=== PATIENT | female | born 1955 | race American Indian/Alaskan Native ===

== ENCOUNTER 2017-07-09 07:28 | Inpatient (IN) | payer BC ==
[2017-07-09 07:35] VITALS: BMI 38.8
--- NOTE | 2017-07-09 07:56 | ED PDOC ---
Lower Extremity Pain/Injury Time Seen by Provider: 07/09/17 07:31 Chief Complaint (Nursing): Lower Extremity Problem/Injury Chief Complaint (Provider): Left knee pain History Per: Patient History/Exam Limitations: no limitations Onset/Duration Of Symptoms: Days (x 1 month) Current Symptoms Are (Timing): Still Present Additional Complaint(s): Anya is a 62 year old female with a past medical history of hypertension, diabetes, and hypercholesterolemia, who presents to the ED complaining of left knee pain, onset 1 month ago. Pain has been worsening, so she came to the ED for further evaluation. PMD: Dr. Abdalla Past Medical History Reviewed: Historical Data, Nursing Documentation, Vital Signs Vital Signs: Last Vital Signs Temp 97.2 F L 07/09/17 07:36 Pulse 89 07/09/17 07:36 Resp 16 07/09/17 07:36 BP 120/64 07/09/17 07:36 Pulse Ox 96 07/09/17 07:36 - Medical History PMH: Diabetes, HTN, Hyperlipidemia - Surgical History Other surgeries: Right knee replacement - Family History Family History: States: Unknown Family Hx - Living Arrangements Living Arrangements: With Family - Social History Current smoker - smoking cessation education provided: No Alcohol: None Drugs: Denies - Home Medications Home Medications: Ambulatory Orders Medication Instructions Recorded Aspirin [Aspirin Chewable] 81 mg PO DAILY 07/09/17 Cholecalciferol [Vitamin D 1000 IU] 50,000 iu PO DAILY 07/09/17 Losartan/Hydrochlorothiazide 1 tab PO DAILY 07/09/17 [Losartan-Hctz 100-25 mg Tab] Rosuvastatin Calcium [Crestor] 20 mg PO HS 07/09/17 Zolpidem [Ambien] 10 mg PO HS PRN 07/09/17 amLODIPine [Norvasc] 10 mg PO DAILY 07/09/17 metFORMIN [glucOPHAGE] 500 mg PO DAILY 07/09/17 traMADol [Ultram] 50 mg PO Q12 PRN 07/09/17 - Allergies Allergies/Adverse Reactions: Allergies Allergy/AdvReac Type Severity Reaction Status Date / Time No Known Allergies Allergy Verified 07/09/17 07:44 Review of Systems ROS Statement: Except As Marked, All Systems Reviewed And Found Negative Constitutional: Negative for: Fever, Chills, Weakness Cardiovascular: Negative for: Chest Pain Respiratory: Negative for: Cough, Shortness of Breath Gastrointestinal: Negative for: Nausea, Vomiting, Diarrhea Musculoskeletal: Positive for: Leg Pain (Knee pain, Left) Neurological: Negative for: Weakness, Numbness, Headache, Dizziness Physical Exam - Reviewed Nursing Documentation Reviewed: Yes Vital Signs Reviewed: Yes - Physical Exam Appears: Positive for: Non-toxic, No Acute Distress Head Exam: Positive for: ATRAUMATIC, NORMAL INSPECTION, NORMOCEPHALIC Skin: Positive for: Normal Color, Warm, Dry Eye Exam: Positive for: EOMI, Normal appearance, PERRL Neck: Positive for: Normal, Painless ROM, Supple Cardiovascular/Chest: Positive for: Regular Rate, Rhythm. Negative for: Murmur Respiratory: Positive for: Normal Breath Sounds. Negative for: Respiratory Distress Gastrointestinal/Abdominal: Positive for: Normal Exam, Bowel Sounds, Soft. Negative for: Tenderness Back: Positive for: Normal Inspection. Negative for: L CVA Tenderness, R CVA Tenderness, Vertebral Tenderness Extremity: Positive for: Normal ROM (Limited ROM but pain on ROM of left knee), Tenderness (to the left knee diffusely). Negative for: Pedal Edema, Other ( Erythema, ecchymosis) Neurologic/Psych: Positive for: Alert, Oriented - Laboratory Results Result Diagrams: 07/09/17 08:53 07/09/17 08:53 Interpretation Of Abn Labs: no acute - ECG O2 Sat by Pulse Oximetry: 96 (RA) Pulse Ox Interpretation: Normal - Progress ED Course And Treament: 900: Spoke with Dr. Lopez. Will admit for further evaluation and management. Spoke with Dr. Gastelum. Will consult. Pain worse and locking. Medical Decision Making Medical Decision Making: Time: 7:55 Initial Impression:Left knee pain Initial Plan: --Paged Dr. Gastelum for consult Time: 8:00 Dr. Gastelum returned call. Patient will be admitted to hospitalist, Dr. Lopez, for worsening knee pain. Time: 8:10 --CMP --Troponin I --CBC --PTT --Prothrombin time --Urine dip --EKG --Chest x-ray --NS IV 500 ml at 100 mls/hr Scribe Attestation: Documented by Devi Robles, acting as a scribe for Rigo Wellington MD Provider Scribe Attestation: All medical record entries made by the Scribe were at my direction and personally dictated by me. I have reviewed the chart and agree that the record accurately reflects my personal performance of the history, physical exam, medical decision making, and the department course for this patient. I have also personally directed, reviewed, and agree with the discharge instructions and disposition. Disposition - Clinical Impression Clinical Impression: Knee pain - Patient ED Disposition Is Patient to be Admitted: Yes Counseled Patient/Family Regarding: Studies Performed, Diagnosis - Disposition Disposition Time: 09:30 Condition: FAIR - Pt Status Changed To: Hospital Disposition Of: Observation - POA Present On Arrival: None
[2017-07-09] MEDS ORDERED: Sodium Chloride 0.9% 500 ML IV STA (08:11)
--- NOTE | 2017-07-09 08:47 | CP.PCM.HP ---
Addendum entered and electronically signed by Alanis Reilly DPM 07/09/17 09:40: Patient last took ASA yesterday morning. Original Note: <Alanis Reilly - Last Filed: 07/09/17 09:29> History of Present Illness - History of Present Illness History of Present Illness: 62 year old female patient PMHx HTN, DM, hypercholesterolemia seen in ED complaining of left knee pain of 1 month duration. Patient has a history of bilateral knee osteoarthritis and underwent a right knee replacement last year 2 /2 severe right knee pain. Patient states because of the severe pain, she was compensating on her left knee, resulting in this current severe left knee pain. Patient admits to taking Tramadol daily for relief however the pain has been getting worse, making ambulation difficult which led her to present to [facility] ED. Patient denies N/V/F/D/C/SOB/palpitations. PMH: HTN, DM, hypercholesterolemia, sleep apnea (uses CPAP) PSH: Right knee replacement (1 year ago) FH: unknown SH: current tobacco use, denies ETOH, denies illicit drug use Meds: see med list All: NKDA Present on Admission - Present on Admission Any Indicators Present on Admission: No Review of Systems - Review of Systems All systems: reviewed and no additional remarkable complaints except (as per HPI ) Past Patient History - Past Medical History & Family History Past Medical History?: Yes - Past Social History Alcohol: None Drugs: Denies - CARDIAC Hx Hypertension: Yes - PULMONARY Hx Respiratory Disorders: Yes Hx Sleep Apnea: Yes - NEUROLOGICAL Hx Neurological Disorder: No - HEENT Hx HEENT Problems: No - RENAL Hx Chronic Kidney Disease: No - ENDOCRINE/METABOLIC Hx Endocrine Disorders: Yes Hx Diabetes Mellitus Type 2: Yes - HEMATOLOGICAL/ONCOLOGICAL Hx Blood Disorders: No - INTEGUMENTARY Hx Dermatological Problems: No - MUSCULOSKELETAL/RHEUMATOLOGICAL Hx Musculoskeletal Disorders: Yes Hx Arthritis: Yes - GASTROINTESTINAL Hx Gastrointestinal Disorders: Yes Other/Comment: heart burn - GENITOURINARY/GYNECOLOGICAL Hx Genitourinary Disorders: No - PSYCHIATRIC Hx Psychophysiologic Disorder: No Hx Substance Use: No - SURGICAL HISTORY Hx Surgeries: Yes Other/Comment: right knee replacement Meds Allergies/Adverse Reactions: Allergies Allergy/AdvReac Type Severity Reaction Status Date / Time No Known Allergies Allergy Verified 07/09/17 07:44 Physical Exam - Constitutional Appears: Well, Non-toxic, No Acute Distress - Head Exam Head Exam: ATRAUMATIC, NORMAL INSPECTION, NORMOCEPHALIC - Eye Exam Eye Exam: EOMI, Normal appearance, PERRL. absent: Periorbital swelling Pupil Exam: NORMAL ACCOMODATION - ENT Exam ENT Exam: Mucous Membranes Moist, Normal Exam, Normal External Ear Exam - Neck Exam Neck exam: Positive for: Full Rom, Normal Inspection. Negative for: Tenderness - Respiratory Exam Respiratory Exam: Clear to Auscultation Bilateral, NORMAL BREATHING PATTERN. absent: Rales, Rhonchi, Wheezes, Respiratory Distress - Cardiovascular Exam Cardiovascular Exam: REGULAR RHYTHM, +S1, +S2. absent: Diastolic murmur, Gallop , JVD, Rubs, Systolic Murmur - GI/Abdominal Exam GI & Abdominal Exam: Normal Bowel Sounds, Soft. absent: Firm, Mass, Tenderness - Rectal Exam Rectal Exam: Deferred - Extremities Exam Extremities exam: Positive for: normal capillary refill, normal inspection, pedal pulses present. Negative for: calf tenderness Additional comments: Decreased ROM left knee with pain noted - Back Exam Back exam: FULL ROM, NORMAL INSPECTION. absent: CVA tenderness (L), CVA tenderness (R), tenderness - Neurological Exam Neurological exam: Alert, CN II-XII Intact, Oriented x3 - Psychiatric Exam Psychiatric exam: Normal Affect, Normal Mood - Skin Skin Exam: Dry, Intact, Normal Color, Warm Results - Vital Signs Recent Vital Signs: Last Vital Signs Temp 97.2 F L 07/09/17 07:36 Pulse 89 07/09/17 07:36 Resp 16 07/09/17 07:36 BP 120/64 07/09/17 07:36 Pulse Ox 96 07/09/17 08:01 - Labs Result Diagrams: 07/09/17 08:53 07/09/17 08:53 Assessment & Plan (1) Primary osteoarthritis of left knee Status: Resolved (2) Hypertension Status: Chronic (3) Hypercholesterolemia Status: Chronic (4) Type 2 diabetes mellitus Status: Chronic (5) Sleep apnea Status: Chronic - Assessment and Plan (Free Text) Assessment: 62 year old female patient PMHx HTN, Hypercholesterolemia, DM2, sleep apnea with severe left knee pain 2/2 osteoarthritis. Failed outpatient conservative management. METs >4. Denies chest pain and dyspnea at rest or on exertion. Labs/ CXR/EKG reviewed. Patient is medically stable for surgery. Low risk for moderate risk procedure. (1) Primary osteoarthritis of left knee Status: Chronic Ortho consult - Dr. Gastelum CXR/EKG/CBC/CMP/PT/PTT/INR Pain management PT/OT consult (2) Hypertension Status: Chronic Restart home antihypertensives: Amlodipine, Losartan/HCTZ Hold ASA (3) Hypercholesterolemia Status: Chronic Restart home med Crestor (4) Type 2 diabetes mellitus Status: Chronic Continue home med: Metformin Accuchecks ACHS Consistent carbohydrate diet (5) Sleep apnea Status: Chronic Continue home med: Ambien At home CPAP (6) DVT prophylaxis SCDs for now <Melly Lopez - Last Filed: 07/09/17 15:21> Results - Vital Signs Recent Vital Signs: Last Vital Signs Temp 97.9 F 07/09/17 08:57 Pulse 89 07/09/17 08:57 Resp 16 07/09/17 08:57 BP 120/64 07/09/17 08:57 Pulse Ox 96 07/09/17 09:31 - Labs Result Diagrams: 07/09/17 08:53 07/09/17 08:53 Labs: Laboratory Results - last 24 hr 07/09/17 07/09/17 07/09/17 08:53 08:53 08:53 WBC 5.6 RBC 4.77 Hgb 12.8 Hct 38.8 MCV 81.2 MCH 26.8 L MCHC 33.0 RDW 15.2 H Plt Count 151 MPV 9.2 Neut % (Auto) 57.1 Lymph % (Auto) 31.7 [place] % (Auto) 8.3 Eos % (Auto) 2.3 Baso % (Auto) 0.6 Neut # 3.2 Lymph # 1.8 [place] # 0.5 Eos # 0.1 Baso # 0.0 PT 10.6 INR 0.9 APTT 32.0 Sodium 143 Potassium 3.5 L Chloride 106 Carbon Dioxide 30 Anion Gap 11 BUN 19 H Creatinine 0.9 Est GFR ( Amer) > 60 Est GFR (Non-Af Amer) > 60 Random Glucose 99 Calcium 9.9 Total Bilirubin 0.4 AST 33 ALT 48 Alkaline Phosphatase 80 Troponin I < 0.0120 Total Protein 7.4 Albumin 4.0 Globulin 3.4 Albumin/Globulin Ratio 1.2 Blood Type Blood Type Confirm Antibody Screen BBK History Checked 07/09/17 07/09/17 12:25 14:19 WBC RBC Hgb Hct MCV MCH MCHC RDW Plt Count MPV Neut % (Auto) Lymph % (Auto) [place] % (Auto) Eos % (Auto) Baso % (Auto) Neut # Lymph # [place] # Eos # Baso # PT INR APTT Sodium Potassium Chloride Carbon Dioxide Anion Gap BUN Creatinine Est GFR ( Amer) Est GFR (Non-Af Amer) Random Glucose Calcium Total Bilirubin AST ALT Alkaline Phosphatase Troponin I Total Protein Albumin Globulin Albumin/Globulin Ratio Blood Type A POSITIVE Blood Type Confirm A POSITIVE Antibody Screen Negative BBK History Checked No verified bt Attending/Attestation - Attestation I have personally seen and examined this patient.: Yes I have fully participated in the care of the patient.: Yes I have reviewed all pertinent clinical information: Yes Notes (Text): 07/09/17 15:21 Seen, examined, and discussed with Resident Dr. Reilly. Agree with findings and plan as above.
[2017-07-09] MEDS ORDERED: ceFAZolin IV 1 gm in Dextrose 2 GM/100 ML BAG IVPB ONE (09:02)
[2017-07-09] MEDS ORDERED: Lidocaine 1% Inj (20ml) ONE (09:02)
[2017-07-09] MEDS ORDERED: Bupivacaine 0.5% Inj(30mL) ONE (09:02)
[2017-07-09 09:03] LABS: BASO % 0.6 % (0.0-2.0); EOS # 0.1 K/uL (0.0-0.7); EOS % 2.3 % (0.0-4.0); HEMATOCRIT 38.8 % (34.0-47.0); LYMPH # 1.8 K/uL (1.0-4.3); LYMPH % 31.7 % (20.0-40.0); MEAN CELL VOLUME 81.2 fl (81.0-99.0); MEAN CORPUSCULAR HEMOGLOBIN 26.8 pg (27.0-31.0); MEAN PLATELET VOLUME 9.2 fl (7.2-11.7); MONO # 0.5 K/uL (0.0-0.8); MONO % 8.3 % (0.0-10.0); NEUT # 3.2 K/uL (1.8-7.0); NEUT % 57.1 % (50.0-75.0); NRBC % 0.2 % (0.0-0.0); RED CELL DISTRIBUTION WIDTH 15.2 % (11.5-14.5); WHITE BLOOD COUNT 5.6 K/uL (4.8-10.8)
[2017-07-09] MEDS ORDERED: Thrombin Topical 5,000 IU Spray Kit ONE (09:03)
[2017-07-09] MEDS ORDERED: Absorbable Gelatin Sponge Size 100 ONE (09:03)
[2017-07-09 09:08] LABS: ALB/GLOB RATIO 1.2 (1.0-2.1); ALKALINE PHOSPHATASE 80 U/L (38-126); ALT/SGPT 48 U/L (9-52); AST/SGOT 33 U/L (14-36); BILIRUBIN,TOTAL 0.4 mg/dl (0.2-1.3); BLOOD UREA NITROGEN 19 mg/dl (7-17); CALCIUM 9.9 mg/dL (8.4-10.2); CARBON DIOXIDE 30 mmol/L (22-30); CHLORIDE 106 mmol/L (98-107); GFR AFRICAN-AMERICAN > 60; GLUCOSE,RANDOM 99 mg/dL (65-105); POTASSIUM 3.5 MMOL/L (3.6-5.0); SODIUM 143 mmol/l (132-148); TOTAL PROTEIN 7.4 G/DL (6.3-8.2)
[2017-07-09] MEDS ORDERED: Potassium CL 10mEq/100ml 100 ML IVPB SCH (09:30)
--- NOTE | 2017-07-09 09:34 | RAD ---
HISTORY: knee pain COMPARISON: No prior. FINDINGS: LUNGS: No active pulmonary disease. PLEURA: No significant pleural effusion identified, no pneumothorax apparent. CARDIOVASCULAR: Normal. OSSEOUS STRUCTURES: No significant abnormalities. VISUALIZED UPPER ABDOMEN: Normal. OTHER FINDINGS: None. IMPRESSION: No acute cardiopulmonary disease appreciated.
[2017-07-09] MEDS ORDERED: Midazolam 2 MG/2 ML VIAL ONE (09:56)
[2017-07-09] MEDS ORDERED: Propofol 10 mg/ml Inj (20 ML) ONE (09:56)
[2017-07-09] MEDS ORDERED: Neostigmine Methylsulfate 3mg/3ml Syringe IV ONE (09:57)
[2017-07-09] MEDS ORDERED: Rocuronium 10 mg/ml (5 ml) ONE ×2 (09:57→13:10)
[2017-07-09] MEDS ORDERED: Lidocaine 4% (Laryng-O-Jet) Kit MM ONE (09:57)
[2017-07-09] MEDS ORDERED: Succinylcholine 200 mg/10 ml Inj IV ONE (09:57)
[2017-07-09] MEDS ORDERED: Lidocaine 1% 5ml Abboject IV ONE (11:06)
--- NOTE | 2017-07-09 11:14 | RAD ---
PROCEDURE: Left Knee Radiographs. HISTORY: Pain. COMPARISON: None. FINDINGS: BONES: No acute fracture or destructive bony lesion identified. JOINTS: Joint space narrowing, cortical sclerosis and prominent osteophyte development are identified at all 3 joint compartments compatible with advanced osteoarthritis. Medial femorotibial compartment appears to be the most affected. JOINT EFFUSION: Trace suprapatellar bursa effusion is in question. OTHER FINDINGS: None. IMPRESSION: Advanced tricompartmental osteoarthritis. No fracture subluxation or dislocation.
[2017-07-09] MEDS ORDERED: Sevoflurane - Inhalation Anesthetic Liq (250 ml) ONE (13:13)
[2017-07-09] MEDS ORDERED: Labetalol 5mg/ml (4ml) ONE (13:40)
[2017-07-09] MEDS ORDERED: Lactated Ringer's 1,000 ML IV ONE ×3 (13:41→16:30)
[2017-07-09] MEDS ORDERED: Sodium Chloride 0.9% 500 ML IV ONE ×3 (13:41→16:30)
[2017-07-09] MEDS ORDERED: Sodium Chloride 0.9% 3,000 ML IV ONE (14:02)
[2017-07-09] MEDS ORDERED: Sodium Chloride 0.9% 1,000 ML IV ONE (15:19)
[2017-07-09] MEDS ORDERED: HYDROmorphone 0.5 mg/0.5 ml ISec IVP PRN (16:50)
--- NOTE | 2017-07-09 16:59 | PCM.ANESB3 ---
Femoral Nerve Block - Femoral Nerve Block Date of Procedure: 07/09/17 Anesthesiologist: Dr. Quigley Pre-Procedure Diagnosis: S/P left total knee replacement Post-Procedure Diagnosis: S/P left total knee replacement Procedure Performed: Femoral Nerve Block Left - Procedure Femoral Nerve Block: The procedure was explained to the patient that it is for the post-operative pain management. Consent was obtained after a thorough discussion with the patient regarding the benefits and possible complications of local anesthetic block of the femoral nerve at the inguinal crease area. The patient was brought to the operating room and standard monitors were applied. Time-out was held with the circulating nurse to confirm the correct surgery and the appropriate block. After the surgery while still under general anesthesia, patient in supine position with fully extended lower extremities and the left groin exposed. The femoral artery was then carefully palpated. The ultrasound transducer was then applied to this area in the transverse plane and the femoral nerve was visualized lateral to the femoral artery and underneath the fascia iliaca. After thorough identification, the inguinal crease area was prepped with Chloraprep solution. At this point, a #21 gauge Stimuplex 4-inch needle was inserted immediately lateral to the femoral artery pulse at the inguinal crease and advanced perpendicularly. The needle was inserted to the ultrasound transducer in-plane towards the femoral nerve in a [id number] direction. Needle advancement was performed carefully under direct ultrasound visualization. Nerve stimulator was used and twitch of the quadriceps muscle was obtained at current of 0.3MA. After negative aspiration, 5cc of 0.375% Bupivacaine with 1:200,000 epinephrine was injected and this was followed with 15cc of 0.375% Bupivacaine with 1:200, 000 epinephrine. Under ultrasound guidance the local anesthetics were observed spreading below fascia iliaca and around the femoral nerve. The needle was removed intact and sterile dressing was applied. The patient had stable vital signs, was conscious and in no apparent distress. The patient tolerated the femoral nerve block well with stable vital signs and was awaken from anesthesia. Patient transported to PACU in stable condition.
--- NOTE | 2017-07-09 17:06 | PCM.ANESB2 ---
Popliteal Nerve Block - Popliteal Nerve Block Date of Procedure: 07/09/17 Anesthesiologist: Dr. Quigley Pre-Procedure Diagnosis: S/P left total knee replacement Post-Procedure Diagnosis: S/P left total knee replacement Procedure Performed: Popliteal Nerve Block Left - Procedure Popliteal Nerve Block: This procedure was explained to the patient that it is for post-operative pain management. Consent was obtained after a thorough discussion with the patient regarding the benefits and possible complications of local anesthetic block of the sciatic nerve at the mid to upper thigh level. The patient was brought to the operating room and standard monitors are applied. Time-out was held with the circulating nurse to confirm the correct surgery and the appropriate block. After the surgery while still under general anesthesia, patient's operative leg was gently raised and supported and the groove in between the biceps femoris and vastus lateralis muscles was carefully palpated. The skin approximately left mid upper thigh was then marked. The ultrasound transducer was then applied to the posterior thigh and the sciatic nerve before its division was visualized in between the bicep femoris and semimembranosus/semitendinosus muscles. After identification, the lateral portion of the thigh was prepped with Chloraprep solution. At this point, a # 21 gauge Stimuplex insulated 4 inch needle was inserted into pre-marked area and advanced in a perpendicular direction. The needle was inserted above the ultrasound transducer in-plane towards the sciatic nerve in a [id number] direction. Needle advancement was performed carefully under direct ultrasound visualization. Nerve stimulator was used and dorsiflexion of the left foot was elicited at a current of 0.3MA. After repeated negative aspiration, 5cc of 0.375% Bupivacaine with 1:200,000 epinephrine was injected and this was flowed with 5cc of 0.375% Bupivacaine with 1:200,000 epinephrine. Under ultrasound guidance the local anesthetics were observed surrounding sciatic nerve . The needle was removed intact and sterile dressing was applied. The patient tolerated the popliteal nerve block well with stable vital signs and was subsequently awaken from anesthesia. Then transported to PACU in stable condition.
--- NOTE | 2017-07-09 17:23 | RAD ---
PROCEDURE: Left Knee Radiographs. HISTORY: Pain. COMPARISON: Left knee radiographs 07/09/2017 9:36 a.m.. FINDINGS: BONES: No acute fracture or destructive bony lesion identified. JOINTS: Patient status post left total knee replacement hardware in the interval with distal femoral and proximal tibial prosthetic components in adequate apparent position. No interval fracture subluxation or dislocation. Postop changes are identified in the anterior soft tissues skin bruce noted anteriorly. JOINT EFFUSION: As above. OTHER FINDINGS: None. IMPRESSION: Status post left knee total knee replacement.
--- NOTE | 2017-07-09 19:09 | PCM.SURG1 ---
Surgeon's Initial Post Op Note - Surgeon's Notes Surgeon: Oriana Port Purser: ZURI Schuster Type of Anesthesia: General Endo Anesthesia Administered By: DR Quigley Pre-Operative Diagnosis: tricompartmental O/A L knee with severe varus deformity Operative Findings: as above. tricomaprtmental synovitis. posterior capsular release. lateral patella release. arthrotomy excsiion loose body\. appl Ghada maynard drssing and knee immobilizer Post-Operative Diagnosis: same Operation Performed: L TKR. posterior capsular release. lateral p[atella release. anterior and posterior synovectomy. arthrotomy/excision loose body. arthrthomy excsion loose bodies. computer navigation Specimen/Specimens Removed: losse bodies/bone cartilage/synovium Estimated Blood Loss: EBL {In ML}: 50 Blood Products Given: N/A Drains Used: No Drains Post-Op Condition: Good Date of Surgery/Procedure: 07/09/17 Time of Surgery/Procedure: 13:20 (time in room 1220/anaesthjesia indcution time 12:20)
[2017-07-09] MEDS: ceFAZolin IV 1 gm in Dextrose 1 GM/50 ML BAG IVPB SCH (21:01)
[2017-07-10] MEDS: Lactated Ringer's 1,000 ML IV SCH ×3 (00:51→15:00)
[2017-07-10] MEDS: ceFAZolin IV 1 gm in Dextrose 1 GM/50 ML BAG IVPB SCH (04:36)
[2017-07-10 07:07] LABS: HEMATOCRIT 33.1 % (34.0-47.0); MEAN CELL VOLUME 81.8 fl (81.0-99.0); MEAN CORPUSCULAR HGB CONC 33.1 g/dL (33.0-37.0); RED CELL DISTRIBUTION WIDTH 15.3 % (11.5-14.5); WHITE BLOOD COUNT 8.4 K/uL (4.8-10.8)
[2017-07-10 07:24] LABS: BLOOD UREA NITROGEN 12 mg/dl (7-17); CALCIUM 8.8 mg/dL (8.4-10.2); CARBON DIOXIDE 28 mmol/L (22-30); CHLORIDE 105 mmol/L (98-107); GFR AFRICAN-AMERICAN > 60; GLUCOSE,RANDOM 138 mg/dL (65-105); SODIUM 141 mmol/l (132-148)
--- NOTE | 2017-07-10 09:24 | CP.PCM.CON ---
History of Present Illness - History of Present Illness History of Present Illness: THE PATIENT IS A 62 YEAR OLD FAMALE WHO UNDERWENT A LEFT TOTAL KNEE REPLACEMENT YESTERDAY BY DR GUZMÁN FOR SEVERE OA. SHE HAD A RIGHT KNEE REPLACEMENT ONE YEAR AGO. SHE ALSO HAS A HISTORY OF HYPERTENSION, HYPERLIPIDEMIA, DIABETES MELLITUS AND SLEEP APNEA. CARDIOLOGY WAS CALLED TO SEE AND FOLLOW HER BY DR GUZMÁN. SHE DENIES CHEST PAIN OR ANY HISTORY OF CAD. Past Patient History - Past Medical History & Family History Past Medical History?: Yes - Past Social History Alcohol: None Drugs: Denies - CARDIAC Hx Hypertension: Yes - PULMONARY Hx Respiratory Disorders: Yes Hx Sleep Apnea: Yes - NEUROLOGICAL Hx Neurological Disorder: No - HEENT Hx HEENT Problems: No - RENAL Hx Chronic Kidney Disease: No - ENDOCRINE/METABOLIC Hx Endocrine Disorders: Yes Hx Diabetes Mellitus Type 2: Yes - HEMATOLOGICAL/ONCOLOGICAL Hx Blood Disorders: No - INTEGUMENTARY Hx Dermatological Problems: No - MUSCULOSKELETAL/RHEUMATOLOGICAL Hx Musculoskeletal Disorders: Yes Hx Arthritis: Yes - GASTROINTESTINAL Hx Gastrointestinal Disorders: Yes Other/Comment: heart burn - GENITOURINARY/GYNECOLOGICAL Hx Genitourinary Disorders: No - PSYCHIATRIC Hx Psychophysiologic Disorder: No Hx Substance Use: No - SURGICAL HISTORY Hx Surgeries: Yes Other/Comment: right knee replacement Meds Allergies/Adverse Reactions: Allergies Allergy/AdvReac Type Severity Reaction Status Date / Time No Known Allergies Allergy Verified 07/09/17 07:44 - Medications Medications: Current Medications Amlodipine Besylate (Norvasc) 10 mg PO DAILY [facility] Enoxaparin Sodium (Lovenox) 40 mg SC DAILY [facility] PRN Reason: Protocol Hydromorphone HCl (Dilaudid 0.2 Mg/Ml Director Of Analytical Development) 6 mg IV Q4 [facility] PRN Reason: Protocol Lactated Ringer's (Lactated Ringer's) 1,000 mls @ 100 mls/hr IV .Q10H [facility] Last Admin: 07/10/17 03:00 Dose: Not Given Losartan Potassium (Cozaar) 100 mg PO DAILY [facility] Physical Exam - Respiratory Exam Respiratory Exam: Clear to Auscultation Bilateral - Cardiovascular Exam Cardiovascular Exam: REGULAR RHYTHM, +S1, +S2 - Additional Findings Additional findings: EKG NSR Results - Vital Signs Recent Vital Signs: Last Vital Signs Temp 98.2 F 07/10/17 08:14 Pulse 83 07/10/17 08:14 Resp 20 07/10/17 08:14 BP 112/71 07/10/17 08:14 Pulse Ox 100 07/10/17 08:14 - Labs Result Diagrams: 07/10/17 05:25 07/10/17 05:25 Labs: Laboratory Results - last 24 hr 07/09/17 07/09/17 07/09/17 08:53 12:25 14:19 WBC RBC Hgb Hct MCV MCH MCHC RDW Plt Count Sodium Potassium Chloride Carbon Dioxide Anion Gap BUN Creatinine Est GFR ( Amer) Est GFR (Non-Af Amer) POC Glucose (mg/dL) Random Glucose Calcium Troponin I < 0.0120 Blood Type A POSITIVE Blood Type Confirm A POSITIVE Antibody Screen Negative BBK History Checked No verified bt 07/09/17 07/10/17 07/10/17 21:52 05:25 05:25 WBC 8.4 RBC 4.04 Hgb 10.9 L Hct 33.1 L MCV 81.8 MCH 27.0 MCHC 33.1 RDW 15.3 H Plt Count 126 L D Sodium 141 Potassium 4.0 Chloride 105 Carbon Dioxide 28 Anion Gap 12 BUN 12 Creatinine 0.8 Est GFR ( Amer) > 60 Est GFR (Non-Af Amer) > 60 POC Glucose (mg/dL) 152 H Random Glucose 138 H Calcium 8.8 Troponin I Blood Type Blood Type Confirm Antibody Screen BBK History Checked 07/10/17 06:24 WBC RBC Hgb Hct MCV MCH MCHC RDW Plt Count Sodium Potassium Chloride Carbon Dioxide Anion Gap BUN Creatinine Est GFR ( Amer) Est GFR (Non-Af Amer) POC Glucose (mg/dL) 131 H Random Glucose Calcium Troponin I Blood Type Blood Type Confirm Antibody Screen BBK History Checked Assessment & Plan - Assessment and Plan (Free Text) Assessment: S/P LEFT TKR HYPERTENSION HYPERLIPIDEMIA DM Plan: CONTINUE LOSARTAN, AMLODIPINE AND LOVENOX FOR REHAB
[2017-07-10] MEDS: Enoxaparin 40 mg Syringe SC SCH (10:39)
[2017-07-10] MEDS ORDERED: Ergocalciferol 50,000 Intl Units Cap PO SCH ×2 (10:45→16:00)
--- NOTE | 2017-07-10 12:44 | CP.PCM.PN ---
<Alanis Reilly - Last Filed: 07/10/17 16:01> Subjective - Date & Time of Evaluation Date of Evaluation: 07/10/17 Time of Evaluation: 11:00 - Subjective Subjective: Hospitalist Progress Note 62 year old female patient seen and evaluated POD#1 left total knee replacement. Patient seen walking with physical therapy at time of visit; hemodynamically stable and NAD. Patient denies any acute events overnight. Patient reports mild soreness to surgical site, but has been able to ambulate safely with the assistance of a walker. Patient admits to inability to urinate overnight; per nursing, straight catheter was placed and drained 700cc urine. Now currently able to void freely. Patient denies fever, diarrhea, chills, SOB, calf pain, palpitations. Objective - Vital Signs/Intake and Output Vital Signs (last 24 hours): Temp Pulse Resp BP Pulse Ox 98.2 F 108 H 20 144/68 100 07/10/17 08:14 07/10/17 10:42 07/10/17 08:14 07/10/17 10:42 07/10/17 08:14 - Medications Medications: Current Medications Amlodipine Besylate (Norvasc) 10 mg PO DAILY [facility] Last Admin: 07/10/17 10:39 Dose: 10 mg Aspirin (Aspirin Chewable) 81 mg PO DAILY [facility] Atorvastatin Calcium (Lipitor) 40 mg PO HS [facility] Enoxaparin Sodium (Lovenox) 40 mg SC DAILY [facility] PRN Reason: Protocol Last Admin: 07/10/17 10:39 Dose: 40 mg Ergocalciferol (Drisdol 50,000 Intl Units Cap) 1 cap PO DAILY [facility] Lactated Ringer's (Lactated Ringer's) 1,000 mls @ 100 mls/hr IV .Q10H [facility] Last Admin: 07/10/17 03:00 Dose: Not Given Losartan Potassium (Cozaar) 100 mg PO DAILY [facility] Last Admin: 07/10/17 10:42 Dose: 100 mg Metformin HCl (Glucophage) 500 mg PO DAILY [facility] Oxycodone/Acetaminophen (Percocet 5/325 Mg Tab) 1 tab PO Q6 PRN PRN Reason: Pain, moderate (4-7) Stop: 07/13/17 12:19 Tramadol HCl (Ultram) 50 mg PO Q12 PRN PRN Reason: Pain, Mild (1-3) - Labs Labs: 07/10/17 05:25 07/10/17 05:25 PT 10.6 Seconds (9.8-13.1) 07/09/17 08:53 INR 0.9 (0.9-1.2) 07/09/17 08:53 APTT 32.0 Seconds (25.6-37.1) 07/09/17 08:53 - Constitutional Appears: Well, Non-toxic, No Acute Distress - Head Exam Head Exam: ATRAUMATIC, NORMAL INSPECTION, NORMOCEPHALIC - Eye Exam Eye Exam: EOMI, Normal appearance, PERRL Pupil Exam: NORMAL ACCOMODATION - ENT Exam ENT Exam: Mucous Membranes Moist, Normal Exam - Neck Exam Neck Exam: Normal Inspection. absent: Tenderness - Respiratory Exam Respiratory Exam: Clear to Ausculation Bilateral, NORMAL BREATHING PATTERN. absent: Rales, Rhonchi, Wheezes - Cardiovascular Exam Cardiovascular Exam: Tachycardia, REGULAR RHYTHM, +S1, +S2 - GI/Abdominal Exam GI & Abdominal Exam: Soft, Normal Bowel Sounds. absent: Tenderness - Rectal Exam Rectal Exam: Deferred - Extremities Exam Extremities Exam: Normal Capillary Refill, Tenderness. absent: Calf Tenderness , Full ROM Additional comments: Dressing to left lower extremity appears clean/dry/intact with no strikethrough noted. Antiembolism stocking noted to RLE. - Back Exam Back Exam: NORMAL INSPECTION. absent: CVA tenderness (L), CVA tenderness (R) - Neurological Exam Neurological Exam: Alert, Awake, Oriented x3 - Psychiatric Exam Psychiatric exam: Normal Affect, Normal Mood - Skin Skin Exam: Dry, Intact, Normal Color, Warm Assessment and Plan (1) Primary osteoarthritis of left knee Status: Resolved (2) Hypertension Status: Chronic (3) Hypercholesterolemia Status: Chronic (4) Type 2 diabetes mellitus Status: Chronic (5) Sleep apnea Status: Chronic (6) Tachycardia Status: Acute - Assessment and Plan (Free Text) Assessment: (1) Primary osteoarthritis of left knee s/p left total knee replacement Status: Resolved Ortho consult - Dr. Gastelum -POD#1 left total knee replacement Pain management = Tramadol, Percocet Continue use of incentive spirometer every hour Ancef 1g 2 doses given prophylactically Continue PT/OT; patient unable to practice walking up steps today 2/2 continued nerve block Plan for DC home once cleared by physical therapy tomorrow (2) Hypertension Status: Chronic Continue Amlodipine, Losartan Restart ASA (3) Hypercholesterolemia Status: Chronic Continue Lipitor (4) Type 2 diabetes mellitus Status: Chronic Glucose 154 today Continue home med: Metformin Accuchecks ACHS (5) Sleep apnea Status: Chronic Home med: Ambien prn (6) DVT prophylaxis VTE prophylaxis per orthopedic service Lovenox MESERET stockings (7) Tachycardia 108 currently Start Metoprolol 12.5 q12 <Melly Lopez - Last Filed: 07/10/17 16:02> Objective - Vital Signs/Intake and Output Vital Signs (last 24 hours): Temp Pulse Resp BP Pulse Ox 99.0 F 115 H 18 114/61 95 07/10/17 15:40 07/10/17 15:40 07/10/17 15:40 07/10/17 15:40 07/10/17 15:40 - Medications Medications: Current Medications Amlodipine Besylate (Norvasc) 10 mg PO DAILY [facility] Last Admin: 07/10/17 10:39 Dose: 10 mg Aspirin (Aspirin Chewable) 81 mg PO DAILY [facility] Atorvastatin Calcium (Lipitor) 40 mg PO HS [facility] Enoxaparin Sodium (Lovenox) 40 mg SC DAILY [facility] PRN Reason: Protocol Last Admin: 07/10/17 10:39 Dose: 40 mg Ergocalciferol (Drisdol 50,000 Intl Units Cap) 1 cap PO Fr [facility] Lactated Ringer's (Lactated Ringer's) 1,000 mls @ 100 mls/hr IV .Q10H [facility] Last Admin: 07/10/17 03:00 Dose: Not Given Losartan Potassium (Cozaar) 100 mg PO DAILY [facility] Last Admin: 07/10/17 10:42 Dose: 100 mg Metformin HCl (Glucophage) 500 mg PO DAILY [facility] Metoprolol Tartrate (Lopressor) 12.5 mg PO Q12 [facility] Oxycodone/Acetaminophen (Percocet 5/325 Mg Tab) 1 tab PO Q6 PRN PRN Reason: Pain, moderate (4-7) Stop: 07/13/17 12:19 Tramadol HCl (Ultram) 50 mg PO Q12 PRN PRN Reason: Pain, Mild (1-3) Zolpidem Tartrate (Ambien) 5 mg PO HS PRN PRN Reason: sleep - Labs Labs: 07/10/17 05:25 07/10/17 05:25 PT 10.6 Seconds (9.8-13.1) 07/09/17 08:53 INR 0.9 (0.9-1.2) 07/09/17 08:53 APTT 32.0 Seconds (25.6-37.1) 07/09/17 08:53 Attending/Attestation - Attestation I have personally seen and examined this patient.: Yes I have fully participated in the care of the patient.: Yes I have reviewed all pertinent clinical information, including history, physical exam and plan: Yes Notes (Text): 07/10/17 16:02 seen examined with resident Dr. Reilly. Agree with findings and plan as above
--- NOTE | 2017-07-10 12:51 | OP ---
PROCEDURE DATE: 07/09/2017 PREOPERATIVE DIAGNOSIS: Severe tricompartmental osteoarthritis of the left knee. POSTOPERATIVE DIAGNOSES: 1. Severe tricompartmental osteoarthritis of the left knee. 2. Loose bodies. 3. Synovitis. 4. Posterior capsular contracture. 5. Lateral patellar retinacular contracture. SURGEON: Silvestre Gastelum MD TEACHER VISUALLY IMPAIRED: GUY Watt, certified registered nursing food service assistant. SECOND MARKETING PROGRAM MANAGER: Benji Benedict. TYPE OF ANESTHESIA: Spinal and general anesthesia. ANESTHESIA ADMINISTERED BY: Chan Palacios MD COMPLICATIONS: None. DRAINS: None. OPERATIVE INDICATIONS: Anya Jose is a patient, who presented to the emergency room at [facility] with severe pain and restricted range of motion to the knee. The patient had a prior joint replacement arthroplasty. Apparently was informed that I was at [facility], and the patient presented to the emergency room with essentially a severely painful knee and inability to ambulate comfortably. The patient is admitted. Workup was accomplished. The patient is taken to surgery after a thorough discussion of the pros, cons, risks and benefits of the surgical approach, possibility of mechanical failure, infection, thromboembolic disease, secondary or tertiary surgery is discussed. Possibility of nerve injury, recurrent deformity, secondary or tertiary surgery, possibility of sepsis, mechanical failure, infection, even is discussed. The patient can no longer withstand the discomfort. OPERATIVE PROCEDURE: 1. Left total knee replacement arthroplasty. 2. Posterior capsular release. 3. Lateral patellar retinacular release. 4. Anterior and posterior synovectomy. 5. Arthrotomy, excision of loose bodies. 6. Computer navigation. DESCRIPTION OF PROCEDURE: After having obtained informed consent in the above fashion, after having identified side, site and procedure and critical pause/time-out, after the satisfactory induction of the anesthetic, the patient identified as Anya Jose in the supine position with all bony prominence well padded. The left lower extremity was prepped and draped in the usual fashion for lower extremity surgery. The tourniquet had been applied, but is not yet inflated. After exsanguinating the limb using a 6-inch Esmarch bandage, the tourniquet which had been applied, was inflated to 350 mmHg. A 6-inch straight midline approach was made to the knee. The skin incision was carried down through the skin and subcutaneous tissue. A medial arthrotomy was accomplished. Portion of the patellar ligament was elevated. Dissection was carried out to the posteromedial aspect of the joint to the direct head of the semimembranosus tendon. The tibia was dislocated anteriorly. Medial and lateral meniscectomies were accomplished. Anterior and posterior cruciate ligaments were excised. Portion of the iliotibial band was released as well. Computer navigation was commenced at this point with the mWaterAlign. The anterior tibial strut was placed and affixed with strap and pins. The accelerometer and sensor was placed, and at this point in time, after registration of the offset and the medial and lateral malleoli, the varus-valgus is set to 0 degrees and posterior slope to proximally 3.5 degrees. The depth of the cut is 10 mm below the more prominent side. The tibial osteotomy was accomplished. The proximal tibia was prepared for the [employer] system with guide's rotation being the lateral aspect of the tibial condyle, mid malleolar axis, medial third of the tibial tuberosity. The proximal tibia having been prepared, attention was turned to the femur. At this point in time, a thorough anterior posterior synovectomy was accomplished. A lateral patellar retinacular release was accomplished from the inside out because of the contracture. This having been accomplished, the navigation pin was placed above the intercondylar notch. The distal cutting block was placed and the sensor and accelerometer are placed along the epicondylar axis. The hip center was found, the varus-valgus of the femoral cut is 0 degrees, knee flexion is 0.5. A 4-in-1 block was placed, anterior and posterior osteotomies were accomplished, chamfer cuts were accomplished. At this point in time, the lamina chain hoist operator was placed, there was found to be a posterior capsular contraction and the posterior capsule was released medially and laterally, medial and lateral aspect of the posterior capsule. Great care was taken to avoid injury to the neurocirculatory structures. This having been accomplished, the box cut was accomplished on the femoral side. The #2 cemented femoral component was applied, the #2 cemented tibial tray, 15 mm polyethylene. Flexion extension balance was found to be excellent. Posterior capsule having been released, lateral patellar retinaculum having been released, attention was turned to the patella. Freehand patellar osteotomy is accomplished. The patella was reamed, 35 mm patella was employed. The patellar balance was excellent as well. The wound was thoroughly irrigated with the Aquamantys and hemostasis controlled with the Aquamantys. The wound was thoroughly irrigated with Pulsavac. The femur, tibia and patella were prepared. The #2 femoral component was applied. The #2 tibial component is cemented. The 35 mm patella was cemented with 15 mm polyethylene. The wound was thoroughly irrigated. Closure was in layers; the medial arthrotomy with #2 Quill and interrupted FiberWire, followed by 0 Quill and interrupted Vicryl, followed by bruce for skin. It should be noted that the tourniquet had been deflated and hemostasis was controlled prior to closure. It should be noted that on arthrotomy, after anterior and posterior synovectomy of the posterior compartment and the superior aspect anteriorly, there were found to be loose bodies; the loose bodies were carefully excised during when the posterior capsule was released. Shoaib Lundy compression dressing and knee immobilizers applied. Postoperative x-rays revealed acceptable position of the construct. Silvestre Gastelum MD
[2017-07-10] MEDS: Oxycodone/Acetaminophen 5/325 mg Tab PO PRN ×2 (16:46→22:04)
--- NOTE | 2017-07-10 17:47 | CARD ---
APPROVED REPORT EKG Measurement Heart [id number] <Conclusion> Normal sinus rhythm Normal ECG
[2017-07-11] MEDS: Oxycodone/Acetaminophen 5/325 mg Tab PO PRN ×2 (05:10→11:22)
[2017-07-11 05:16] VITALS: RESP 18
[2017-07-11 08:19] VITALS: BP 124/77; PULSE 97; TEMP 98.8; O2SAT 94
[2017-07-11] MEDS: Enoxaparin 40 mg Syringe SC SCH (09:03)
--- NOTE | 2017-07-11 11:12 | CP.PCM.PN ---
Subjective - Date & Time of Evaluation Date of Evaluation: 07/11/17 Time of Evaluation: 11:10 - Subjective Subjective: S- pt comfortable PD#2 - wishing to be transferred to rehab Objective - Vital Signs/Intake and Output Vital Signs (last 24 hours): Temp Pulse Resp BP Pulse Ox 98.8 F 97 H 18 124/77 94 L 07/11/17 08:18 07/11/17 09:09 07/11/17 08:18 07/11/17 09:09 07/11/17 08:18 - Medications Medications: Current Medications Amlodipine Besylate (Norvasc) 10 mg PO DAILY [facility] Last Admin: 07/11/17 09:06 Dose: 10 mg Atorvastatin Calcium (Lipitor) 40 mg PO HS [facility] Last Admin: 07/11/17 00:09 Dose: 40 mg Docusate Sodium (Colace) 100 mg PO BID [facility] Enoxaparin Sodium (Lovenox) 40 mg SC DAILY [facility] PRN Reason: Protocol Last Admin: 07/11/17 09:03 Dose: 40 mg Ergocalciferol (Drisdol 50,000 Intl Units Cap) 1 cap PO Fr [facility] Last Admin: 07/10/17 18:41 Dose: 1 cap Ferrous Sulfate (Feosol) 325 mg PO BID [facility] Lactated Ringer's (Lactated Ringer's) 1,000 mls @ 100 mls/hr IV .Q10H [facility] Last Admin: 07/10/17 15:00 Dose: 100 mls/hr Losartan Potassium (Cozaar) 100 mg PO DAILY [facility] Last Admin: 07/11/17 09:09 Dose: 100 mg Metformin HCl (Glucophage) 500 mg PO DAILY [facility] Last Admin: 07/11/17 09:06 Dose: 500 mg Metoprolol Tartrate (Lopressor) 12.5 mg PO Q12 [facility] Last Admin: 07/11/17 09:04 Dose: 12.5 mg Oxycodone/Acetaminophen (Percocet 5/325 Mg Tab) 1 tab PO Q6 PRN PRN Reason: Pain, moderate (4-7) Stop: 07/13/17 12:19 Last Admin: 07/11/17 05:10 Dose: 1 tab Tramadol HCl (Ultram) 50 mg PO Q12 PRN PRN Reason: Pain, Mild (1-3) Last Admin: 07/11/17 09:03 Dose: 50 mg Zolpidem Tartrate (Ambien) 5 mg PO HS PRN PRN Reason: sleep - Labs Labs: 07/10/17 05:25 07/10/17 05:25 PT 10.6 Seconds (9.8-13.1) 07/09/17 08:53 INR 0.9 (0.9-1.2) 07/09/17 08:53 APTT 32.0 Seconds (25.6-37.1) 07/09/17 08:53 - Additional Findings Additional findings: Obj systemic -wnl Musculoskeletal staqnce/gairt- defrred L knee wound dressing dry and intact orthopedically stable no clf tenderness/no evidence for spesis orthopedically stable Assessment and Plan - Assessment and Plan (Free Text) Assessment: A- s/p L TKR P- weight bearing to tolerance orthopedically stable for rehab transfer
--- NOTE | 2017-07-11 11:20 | CP.PCM.DIS ---
Provider - Provider Date of Admission: 07/10/17 14:11 Attending physician: Melly Lopez DO Consults: Ortho : Dr Gastelum Cardio : Dr De La Cruz Time Spent in preparation of Discharge (in minutes): 35 Diagnosis - Discharge Diagnosis (1) S/P total knee replacement Status: Acute (2) Primary osteoarthritis of knee Status: Chronic (3) Hypercholesterolemia Status: Chronic (4) Hypertension Status: Chronic (5) Sleep apnea Status: Chronic (6) Type 2 diabetes mellitus Status: Chronic (7) Postoperative anemia due to acute blood loss Status: Acute Hospital Course - Lab Results Lab Results: Most Recent Lab Values WBC 8.4 K/uL (4.8-10.8) 07/10/17 05:25 RBC 4.04 Mil/uL (3.80-5.20) 07/10/17 05:25 Hgb 10.9 g/dL (12.0-16.0) L 07/10/17 05:25 Hct 33.1 % (34.0-47.0) L 07/10/17 05:25 MCV 81.8 fl (81.0-99.0) 07/10/17 05:25 MCH 27.0 pg (27.0-31.0) 07/10/17 05:25 MCHC 33.1 g/dL (33.0-37.0) 07/10/17 05:25 RDW 15.3 % (11.5-14.5) H 07/10/17 05:25 Plt Count 126 K/uL (130-400) L D 07/10/17 05:25 MPV 9.2 fl (7.2-11.7) 07/09/17 08:53 Neut % (Auto) 57.1 % (50.0-75.0) 07/09/17 08:53 Lymph % (Auto) 31.7 % (20.0-40.0) 07/09/17 08:53 [place] % (Auto) 8.3 % (0.0-10.0) 07/09/17 08:53 Eos % (Auto) 2.3 % (0.0-4.0) 07/09/17 08:53 Baso % (Auto) 0.6 % (0.0-2.0) 07/09/17 08:53 Neut # 3.2 K/uL (1.8-7.0) 07/09/17 08:53 Lymph # 1.8 K/uL (1.0-4.3) 07/09/17 08:53 [place] # 0.5 K/uL (0.0-0.8) 07/09/17 08:53 Eos # 0.1 K/uL (0.0-0.7) 07/09/17 08:53 Baso # 0.0 K/uL (0.0-0.2) 07/09/17 08:53 PT 10.6 Seconds (9.8-13.1) 07/09/17 08:53 INR 0.9 (0.9-1.2) 07/09/17 08:53 APTT 32.0 Seconds (25.6-37.1) 07/09/17 08:53 Sodium 141 mmol/l (132-148) 07/10/17 05:25 Potassium 4.0 MMOL/L (3.6-5.0) 07/10/17 05:25 Chloride 105 mmol/L (98-107) 07/10/17 05:25 Carbon Dioxide 28 mmol/L (22-30) 07/10/17 05:25 Anion Gap 12 (10-20) 07/10/17 05:25 BUN 12 mg/dl (7-17) 07/10/17 05:25 Creatinine 0.8 mg/dl (0.7-1.2) 07/10/17 05:25 Est GFR ( Amer) > 60 07/10/17 05:25 Est GFR (Non-Af Amer) > 60 07/10/17 05:25 POC Glucose (mg/dL) 121 mg/dL (65-110) H 07/11/17 05:45 Random Glucose 138 mg/dL (65-105) H 07/10/17 05:25 Calcium 8.8 mg/dL (8.4-10.2) 07/10/17 05:25 Total Bilirubin 0.4 mg/dl (0.2-1.3) 07/09/17 08:53 AST 33 U/L (14-36) 07/09/17 08:53 ALT 48 U/L (9-52) 07/09/17 08:53 Alkaline Phosphatase 80 U/L (38-126) 07/09/17 08:53 Troponin I < 0.0120 ng/mL (0.00-0.120) 07/09/17 08:53 Total Protein 7.4 G/DL (6.3-8.2) 07/09/17 08:53 Albumin 4.0 g/dL (3.5-5.0) 07/09/17 08:53 Globulin 3.4 gm/dL (2.2-3.9) 07/09/17 08:53 Albumin/Globulin Ratio 1.2 (1.0-2.1) 07/09/17 08:53 Blood Type A POSITIVE 07/09/17 12:25 Blood Type Confirm A POSITIVE 07/09/17 14:19 Antibody Screen Negative 07/09/17 12:25 BBK History Checked No verified bt 07/09/17 12:25 - Hospital Course Hospital Course: 62 y/o lady with long hx of Primary OA, s/p Right TKR, HTN, Sleep Apnea, presented to the ED bec of severe left knee pain. Ortho consulted . Patient then undewrent Left TKR. (1) Primary osteoarthritis of left knee s/p left total knee replacement Ortho consulted - Dr. Gastelum s/p Left total knee replacement Pain management = Tramadol, Percocet Continue use of incentive spirometer every hour Ancef 1g 3 doses given prophylactically PT/OT consulted - rec Home PT (2) Hypertension Status: Chronic Continue Amlodipine, Losartan Restart ASA (3) Hypercholesterolemia Status: Chronic Continue Lipitor (4) Type 2 diabetes mellitus Continue home med: Metformin Accuchecks ACHS (5) Sleep apnea CPAP q hs 6. Mild Post op Anemia due to acute blood loss start Ferrous DVT prophylaxis Lovenox will d/c home on ASA BID Discharge Exam - Head Exam Head Exam: ATRAUMATIC, NORMAL INSPECTION, NORMOCEPHALIC - Eye Exam Eye Exam: EOMI, Normal appearance, PERRL Pupil Exam: NORMAL ACCOMODATION - ENT Exam ENT Exam: Mucous Membranes Moist, Normal External Ear Exam - Neck Exam Neck exam: Full Rom - Respiratory Exam Respiratory Exam: NORMAL BREATHING PATTERN. absent: Respiratory Distress - GI/Abdominal Exam GI & Abdominal Exam: Normal Bowel Sounds, Soft. absent: Tenderness - Extremities Exam Extremities exam: normal capillary refill, pedal pulses present Additional comments: no calf tenderness - Back Exam Back exam: FULL ROM. absent: CVA tenderness (L), CVA tenderness (R) - Neurological Exam Neurological exam: Alert, CN II-XII Intact, Oriented x3, Reflexes Normal - Psychiatric Exam Psychiatric exam: Normal Affect, Normal Mood - Skin Skin Exam: Dry, Normal Color, Warm Discharge Plan - Discharge Medications Prescriptions: Ferrous Sulfate 325 mg PO BID #60 tablet oxyCODONE/Acetaminophen [Percocet 5/325 mg Tab] 1 tab PO Q6 PRN #20 tab PRN Reason: Pain, Moderate (4-7) - Follow Up Plan Condition: GOOD Disposition: HOME/ ROUTINE Additional Instructions: ff up with Dr Gastelum in 1 wk Home Physical therapy Referrals: Silvestre Gastelum III, MD [Staff Provider] -
--- NOTE | 2017-07-11 13:42 | CP.PCM.PN ---
Subjective - Date & Time of Evaluation Date of Evaluation: 07/11/17 Time of Evaluation: 11:00 - Subjective Subjective: NO CHEST PAIN OR SOB Objective - Vital Signs/Intake and Output Vital Signs (last 24 hours): Temp Pulse Resp BP Pulse Ox 98.8 F 97 H 18 124/77 94 L 07/11/17 08:18 07/11/17 09:09 07/11/17 08:18 07/11/17 09:09 07/11/17 08:18 - Medications Medications: Current Medications Amlodipine Besylate (Norvasc) 10 mg PO DAILY [facility] Last Admin: 07/11/17 09:06 Dose: 10 mg Atorvastatin Calcium (Lipitor) 40 mg PO HS [facility] Last Admin: 07/11/17 00:09 Dose: 40 mg Docusate Sodium (Colace) 100 mg PO BID [facility] Last Admin: 07/11/17 11:23 Dose: 100 mg Enoxaparin Sodium (Lovenox) 40 mg SC DAILY [facility] PRN Reason: Protocol Last Admin: 07/11/17 09:03 Dose: 40 mg Ergocalciferol (Drisdol 50,000 Intl Units Cap) 1 cap PO Fr [facility] Last Admin: 07/10/17 18:41 Dose: 1 cap Ferrous Sulfate (Feosol) 325 mg PO BID [facility] Last Admin: 07/11/17 11:24 Dose: 325 mg Lactated Ringer's (Lactated Ringer's) 1,000 mls @ 100 mls/hr IV .Q10H [facility] Last Admin: 07/10/17 15:00 Dose: 100 mls/hr Losartan Potassium (Cozaar) 100 mg PO DAILY [facility] Last Admin: 07/11/17 09:09 Dose: 100 mg Metformin HCl (Glucophage) 500 mg PO DAILY [facility] Last Admin: 07/11/17 09:06 Dose: 500 mg Metoprolol Tartrate (Lopressor) 12.5 mg PO Q12 [facility] Last Admin: 07/11/17 09:04 Dose: 12.5 mg Oxycodone/Acetaminophen (Percocet 5/325 Mg Tab) 1 tab PO Q6 PRN PRN Reason: Pain, moderate (4-7) Stop: 07/13/17 12:19 Last Admin: 07/11/17 11:22 Dose: 1 tab Tramadol HCl (Ultram) 50 mg PO Q12 PRN PRN Reason: Pain, Mild (1-3) Last Admin: 07/11/17 09:03 Dose: 50 mg Zolpidem Tartrate (Ambien) 5 mg PO HS PRN PRN Reason: sleep - Labs Labs: 07/10/17 05:25 07/10/17 05:25 PT 10.6 Seconds (9.8-13.1) 07/09/17 08:53 INR 0.9 (0.9-1.2) 07/09/17 08:53 APTT 32.0 Seconds (25.6-37.1) 07/09/17 08:53 - Respiratory Exam Respiratory Exam: Clear to Ausculation Bilateral - Cardiovascular Exam Cardiovascular Exam: REGULAR RHYTHM, +S1, +S2 Assessment and Plan - Assessment and Plan (Free Text) Assessment: S/P LEFT TKR HYPERTENSION HYPERLIPIDEMIA Plan: CONTINUE LOSARTAN, METOPROLOL, AMLODIPINE AND ATORVASTATIN FOR DISCHARGE TO HOME TODAY
== END 2017-07-11 14:28 | disposition home health service (06) | DRG 470 ==
LOC: H.ER 07:28 → H.ERHOLD 08:11 → H.MEDSURG1 14:54 → OBSVTOIN 07-10 14:11
PROVIDERS: ADMIT Student in an Organized Health Care Education/Training Program; ATTEND Student in an Organized Health Care Education/Training Program
PROC: 3E0T3BZ Introduction of Anesthetic Agent into Peripheral Nerves and Plexi, Percutaneous Approach (ICD-10-PCS; 2017-07-09)
PROC: 0SRD0J9 Replacement of Left Knee Joint with Synthetic Substitute, Cemented, Open Approach (ICD-10-PCS; principal; 2017-07-09 09:30)
PROC: 0SBD0ZZ Excision of Left Knee Joint, Open Approach (ICD-10-PCS; 2017-07-09 09:30)
PROC: 0SCD0ZZ Extirpation of Matter from Left Knee Joint, Open Approach (ICD-10-PCS; 2017-07-09 09:30)
DX: M17.12 Unilateral primary osteoarthritis, left knee (principal); D62 Acute posthemorrhagic anemia; I10 Essential (primary) hypertension; E11.9 Type 2 diabetes mellitus without complications; E78.00 Pure hypercholesterolemia, unspecified; E78.5 Hyperlipidemia, unspecified; G47.30 Sleep apnea, unspecified; M65.9 Synovitis and tenosynovitis, unspecified; Z72.0 Tobacco use; Z79.899 Other long term (current) drug therapy; Z96.651 Presence of right artificial knee joint; Z79.84 Long term (current) use of oral hypoglycemic drugs; R00.0 Tachycardia, unspecified; R12 Heartburn

== ENCOUNTER 2017-12-23 06:50 | Observation (INO) | payer BC ==
[2017-12-22 09:08] VITALS: BMI 37.8
--- NOTE | 2017-12-23 07:29 | CP.PCM.CON ---
History of Present Illness - History of Present Illness History of Present Illness: Patient is a 62 y/o female with PMH of NIDDM, HTN, hypercholesterolemia and sleep apnea presents with complaints of L knee pain and dysfunction. The patient underwent a left total knee arthroplasty in June 2018. She then notes mechanical fall on ice in August 2017 and describes a hyperflexion injury. Since the injury, she has had progressively worsening pain and dysfunction. She states that the pain is intermittent but daily. The pain is dull and aching and located at the anterior aspect of the knee. Pain is worsened with walking, stair climbing and extending the knee. The pain is alleviated with rest. She is unable to straighten her knee against gravity. She has undergone failed conservative management with oral medications and physical therapy. She denies any radiation of pain, numbness or tingling. She also denies any CP/SOB/N/V/D/fever/GOMEZ/dysuria/melena. Review of Systems - Review of Systems All systems: reviewed and no additional remarkable complaints except Review of Systems: as per HPI Past Patient History - Past Medical History & Family History Past Medical History?: Yes Past Family History: Reviewed and not pertinent - Past Social History Smoking Status: Never Smoked Alcohol: None Drugs: Denies - CARDIAC Hx Cardiac Disorders: Yes Hx Hypercholesterolemia: Yes Hx Hypertension: Yes - PULMONARY Hx Respiratory Disorders: Yes Hx Sleep Apnea: Yes - NEUROLOGICAL Hx Neurological Disorder: No - HEENT Hx HEENT Problems: No - RENAL Hx Chronic Kidney Disease: No - ENDOCRINE/METABOLIC Hx Endocrine Disorders: Yes Hx Diabetes Mellitus Type 2: Yes - HEMATOLOGICAL/ONCOLOGICAL Hx Blood Disorders: No - INTEGUMENTARY Hx Dermatological Problems: No - MUSCULOSKELETAL/RHEUMATOLOGICAL Hx Musculoskeletal Disorders: Yes Hx Arthritis: Yes - GASTROINTESTINAL Hx Gastrointestinal Disorders: Yes Other/Comment: GERD - GENITOURINARY/GYNECOLOGICAL Hx Genitourinary Disorders: No - PSYCHIATRIC Hx Psychophysiologic Disorder: No Hx Substance Use: No - SURGICAL HISTORY Hx Surgeries: Yes Other/Comment: right total knee replacement, left total knee replacement - ANESTHESIA Hx Anesthesia: Yes Hx Anesthesia Reactions: No Hx Malignant Hyperthermia: No Has any member of the family had a problem w/ anesthesia?: No Meds Allergies/Adverse Reactions: Allergies Allergy/AdvReac Type Severity Reaction Status Date / Time No Known Allergies Allergy Verified 12/23/17 08:22 - Medications Medications: Metformin, tramadol, losartan/HCTZ, Crestor, zolpidem, aspirin, Vitamin D Physical Exam - Constitutional Appears: No Acute Distress - Head Exam Head Exam: ATRAUMATIC, NORMOCEPHALIC - Eye Exam Eye Exam: EOMI, Normal appearance, PERRL - ENT Exam ENT Exam: Mucous Membranes Moist, Normal Exam - Neck Exam Neck exam: Positive for: Normal Inspection - Respiratory Exam Respiratory Exam: Clear to Auscultation Bilateral, NORMAL BREATHING PATTERN - Cardiovascular Exam Cardiovascular Exam: REGULAR RHYTHM - GI/Abdominal Exam GI & Abdominal Exam: Normal Bowel Sounds, Soft - Extremities Exam Additional comments: L knee: mild swelling, + tenderness over patella tendon, + infrapatellar defect , old TKA scar sensation intact SP/DP/TN motor intact EHL/FHL/TA/G, unable to extend against gravity pedal pulses intact comp soft/NT Assessment & Plan (1) Patellar tendon rupture Assessment and Plan: Patient is a 62 y/o female with a traumatic patella tendon rupture with h/o L TKA -Dr. Gastelum proposes left patellar tendon reconstruction with allograft in OR today -Risks/benefits of the procedure where explained in detail to patient. Patient expresses understanding and agrees to proceed -NPO -medical & cardiac clearance -Above d/w Dr. Gastelum in agreement Status: Acute - Date & Time Date: 12/23/17 Time: 07:29
--- NOTE | 2017-12-23 08:29 | CP.PCM.HP ---
History of Present Illness - History of Present Illness History of Present Illness: Chief Complaint : Left knee pain HPI: 62 y/o female patient with hx of HTN, DM, Sleep Apnea, Osteoarthritis with previous Right and Left TKR, came in because of Left Knee Pain. The Patient had a Right TKR in 2015 and a Left TKR 06/2017. She was doing fine after the last surgery and was ambulating without any problem until 4 months ago ( August 2017) when she slipped and fell and twisted her left knee and felt something pop. Since then she started having left knee pain and was unable to put weight on her left knee on ambulation. She would hop on her right knee during ambulation so as not to put any weight on her left. She went to see Dr Gastelum who ordered several imagings ( CT scan and Xray) and was told that she needed to have a Patellar surgery. She presented to the [facility] for her surgery. Present on Admission - Present on Admission Any Indicators Present on Admission: No Review of Systems - Review of Systems All systems: reviewed and no additional remarkable complaints except - Constitutional Constitutional: absent: Chills, Fever, Weakness - EENT Eyes: absent: Blurred Vision, Change in Vision, Diplopia Nose/Mouth/Throat: absent: Epistaxis, Nasal Congestion, Nasal Discharge - Cardiovascular Cardiovascular: absent: Chest Pain, Chest Pain at Rest, Orthopnea, Palpitations - Respiratory Respiratory: absent: Cough, Dyspnea, Hemoptysis, Dyspnea on Exertion - Gastrointestinal Gastrointestinal: absent: Abdominal Pain, Nausea, Vomiting - Genitourinary Genitourinary: absent: Dysuria, Hematuria, Pyuria - Musculoskeletal Musculoskeletal: Abnormal Gait, Limited Range of Motion (left knee), Stiffness - Integumentary Integumentary: absent: Dry Skin, Lesions, Pruritus, Rash - Neurological Neurological: Abnormal Gait. absent: Dizziness, Numbness, Focal Weakness, Headaches, Paresthesias - Psychiatric Psychiatric: absent: Anxiety, Depression, Hopelessness, Suicidal Ideation - Endocrine Endocrine: absent: Polydipsia, Polyphagia, Polyuria - Hematologic/Lymphatic Hematologic: absent: Easy Bleeding, Easy Bruising Past Patient History - Infectious Disease Hx of Infectious Diseases: None - Tetanus Immunizations Tetanus Immunization: Unknown - Past Medical History & Family History Past Medical History?: Yes Past Family History: Reviewed and not pertinent - Past Social History Smoking Status: Never Smoked Chewing Tobacco Use: No Cigar Use: No Alcohol: None Drugs: Denies Home Situation {Lives}: With Family Domestic Violence: Negative - CARDIAC Hx Cardiac Disorders: Yes (HTN, HIGH CHOLESTEROL) Hx Hypercholesterolemia: Yes Hx Hypertension: Yes - PULMONARY Hx Respiratory Disorders: Yes Hx Sleep Apnea: Yes (on CPAP) - NEUROLOGICAL Hx Neurological Disorder: No - HEENT Hx HEENT Problems: No - RENAL Hx Chronic Kidney Disease: No - ENDOCRINE/METABOLIC Hx Endocrine Disorders: Yes Hx Diabetes Mellitus Type 2: Yes - HEMATOLOGICAL/ONCOLOGICAL Hx Blood Disorders: No - INTEGUMENTARY Hx Dermatological Problems: No - MUSCULOSKELETAL/RHEUMATOLOGICAL Hx Musculoskeletal Disorders: Yes Hx Arthritis: Yes Hx Degenerative Joint Disease: Yes Hx Osteoarthritis: Yes - GASTROINTESTINAL Hx Gastrointestinal Disorders: Yes Other/Comment: heart burn - GENITOURINARY/GYNECOLOGICAL Hx Genitourinary Disorders: No - PSYCHIATRIC Hx Psychophysiologic Disorder: No Hx Substance Use: No - SURGICAL HISTORY Hx Surgeries: Yes Hx Joint Replacement: Yes (Right and Left TKR) Hx Orthopedic Surgery: Yes Other/Comment: right knee replacement - ANESTHESIA Hx Anesthesia: Yes Hx Anesthesia Reactions: No Hx Malignant Hyperthermia: No Has any member of the family had a problem w/ anesthesia?: No Meds Allergies/Adverse Reactions: Allergies Allergy/AdvReac Type Severity Reaction Status Date / Time No Known Allergies Allergy Verified 12/23/17 08:22 Physical Exam - Constitutional Appears: Well, Non-toxic, No Acute Distress - Head Exam Head Exam: ATRAUMATIC, NORMAL INSPECTION, NORMOCEPHALIC - Eye Exam Eye Exam: EOMI, Normal appearance Pupil Exam: NORMAL ACCOMODATION - ENT Exam ENT Exam: Mucous Membranes Moist, Normal External Ear Exam - Neck Exam Neck exam: Positive for: Full Rom - Respiratory Exam Respiratory Exam: NORMAL BREATHING PATTERN. absent: Rales, Wheezes, Respiratory Distress - Cardiovascular Exam Cardiovascular Exam: REGULAR RHYTHM, +S1, +S2 - GI/Abdominal Exam GI & Abdominal Exam: Normal Bowel Sounds, Soft. absent: Tenderness - Extremities Exam Extremities exam: Positive for: normal capillary refill, pedal pulses present. Negative for: calf tenderness, pedal edema Additional comments: Pain on ROM of Left Knee - Back Exam Back exam: FULL ROM. absent: CVA tenderness (L), CVA tenderness (R), paraspinal tenderness, vertebral tenderness - Neurological Exam Neurological exam: Alert, CN II-XII Intact, Oriented x3, Reflexes Normal - Psychiatric Exam Psychiatric exam: Normal Affect, Normal Mood - Skin Skin Exam: Dry, Normal Color, Warm Results - Labs Labs: Laboratory Results - last 24 hr 12/23/17 07:44 POC Glucose (mg/dL) 83 Reviewed labs done as outpt - EKG Data EKG Interpreted by: Myself EKG shows normal: Sinus rhythm Rate: Normal - EKG Data When Compared to Previous EKG: No Significant Change Assessment & Plan (1) Left knee pain Status: Acute (2) S/P total knee replacement Status: Chronic (3) Hypercholesterolemia Status: Chronic (4) Hypertension Status: Chronic (5) Sleep apnea Status: Chronic (6) Type 2 diabetes mellitus Status: Chronic (7) Primary osteoarthritis of knee Status: Chronic (8) DVT prophylaxis Status: Acute - Assessment and Plan (Free Text) Assessment: 62 y/o female patient with hx of HTN, DM, Sleep Apnea, Osteoarthritis with previous Right and Left TKR, came in because of Left Knee Pain. The Patient had a Right TKR in 2015 and a Left TKR 06/2017. She was doing fine after the last surgery and was ambulating without any problem until 4 months ago ( August 2017) when she slipped and fell on the ice and twisted her left knee. She felt something popped and since then she started having left knee pain and was unable to put weight on her left knee on ambulation. (1) Left knee pain Status: Acute Ortho consult: Dr Gastelum Plan for surgery today Cardiology consult : Dr De La Cruz for cardiac pre op eval Pain mgt PT/OT (2) S/P total knee replacement , bilateral for Primary OA Status: Chronic (3) Hypercholesterolemia Status: Chronic cont statin (4) Hypertension controlled Status: Chronic cont Losartan/HCTZ (5) Sleep apnea Status: Chronic Pt on CPAP q hs (6) Type 2 diabetes mellitus Status: Chronic Hold Metformin as pt NPO DVT prophylaxis Status: Acute hold off on any anticoag as pt is for surgery today. Decision To Admit - Pt Status Changed To: Hospital Disposition Of: Observation - . Bed Request Type: Med/Surg Admitting Physician: Melina Gann
--- NOTE | 2017-12-23 09:36 | CP.PCM.CON ---
History of Present Illness - History of Present Illness History of Present Illness: THE PATIENT IS A 62 YEAR OLD FEMALE WHO HAD A LEFT TKR IN JUNE 2017 THAT WAS SUCCESSFUL. SHE UNFORTUNATELY SLIPPED ON ICE IN AUGUST 2017 AND FELL AND HURT HER LEFT KNEE AND SHE HEARD A POPPING SOUND. SHE HAS HAD LEFT KNEE PAIN AND DIFFICULTY WALKING SINCE THEN. SHE SAW DR GUZMÁN WHO HAD X-RAYS AND A CT SCAN DONE ON HER LEFT KNEE AND SHE NEEDS PATELLA SURGERY. I WAS CALLED TO SEE HER FOR CARDIAC CLEARANCE. SHE HAS A HISTORY OF HYPERTENSION, HYPERLIPIDEMIA AND TYPE 2 DM. SHE DENIES CHEST PAIN, SOB OR ANY KNOWN CARDIAC PROBLEM. Past Patient History - Infectious Disease Hx of Infectious Diseases: None - Tetanus Immunizations Tetanus Immunization: Unknown - Past Medical History & Family History Past Medical History?: Yes Past Family History: Reviewed and not pertinent - Past Social History Smoking Status: Never Smoked Chewing Tobacco Use: No Cigar Use: No Alcohol: None Drugs: Denies Home Situation {Lives}: With Family Domestic Violence: Negative - CARDIAC Hx Cardiac Disorders: Yes (HTN, HIGH CHOLESTEROL) Hx Hypercholesterolemia: Yes Hx Hypertension: Yes - PULMONARY Hx Respiratory Disorders: Yes Hx Sleep Apnea: Yes (on CPAP) - NEUROLOGICAL Hx Neurological Disorder: No - HEENT Hx HEENT Problems: No - RENAL Hx Chronic Kidney Disease: No - ENDOCRINE/METABOLIC Hx Endocrine Disorders: Yes Hx Diabetes Mellitus Type 2: Yes - HEMATOLOGICAL/ONCOLOGICAL Hx Blood Disorders: No - INTEGUMENTARY Hx Dermatological Problems: No - MUSCULOSKELETAL/RHEUMATOLOGICAL Hx Musculoskeletal Disorders: Yes Hx Arthritis: Yes Hx Degenerative Joint Disease: Yes Hx Osteoarthritis: Yes - GASTROINTESTINAL Hx Gastrointestinal Disorders: Yes Other/Comment: heart burn - GENITOURINARY/GYNECOLOGICAL Hx Genitourinary Disorders: No - PSYCHIATRIC Hx Psychophysiologic Disorder: No Hx Substance Use: No - SURGICAL HISTORY Hx Surgeries: Yes Hx Joint Replacement: Yes (Right and Left TKR) Hx Orthopedic Surgery: Yes Other/Comment: right knee replacement - ANESTHESIA Hx Anesthesia: Yes Hx Anesthesia Reactions: No Hx Malignant Hyperthermia: No Has any member of the family had a problem w/ anesthesia?: No Meds Allergies/Adverse Reactions: Allergies Allergy/AdvReac Type Severity Reaction Status Date / Time No Known Allergies Allergy Verified 12/23/17 08:22 Physical Exam - Respiratory Exam Respiratory Exam: Clear to Auscultation Bilateral - Cardiovascular Exam Cardiovascular Exam: REGULAR RHYTHM, +S1, +S2 - Additional Findings Additional findings: EKG NST LABS REVIEWED Results - Vital Signs Recent Vital Signs: Last Vital Signs Temp 98 F 12/23/17 08:00 Pulse 96 H 12/23/17 08:00 Resp 18 12/23/17 08:00 BP 144/69 12/23/17 08:00 Pulse Ox 99 12/23/17 08:00 - Labs Labs: Laboratory Results - last 24 hr 12/23/17 07:44 POC Glucose (mg/dL) 83 Assessment & Plan - Assessment and Plan (Free Text) Assessment: LEFT TKR JUNE 2017 WITH FALL AUGUST 2017 WITH INJURY TO LEFT KNEE HYPERTENSION HYPERLIPIDEMIA TYPE 2 DM Plan: THE PATIENT IS CLEARED FOR LEFT KNEE SURGERY
[2017-12-23 09:41] LABS: URINE BILIRUBIN NEGATIVE (NEGATIVE); URINE BLOOD NEGATIVE (NEGATIVE); URINE CLARITY CLEAR (Clear); URINE COLOR YELLOW (YELLOW); URINE GLUCOSE (UA) NEG (Normal); URINE LEUKOCYTE ESTERASE NEG Leu/uL (Negative); URINE PROTEIN NEGATIVE (NEGATIVE); URINE UROBILINOGEN 0.2-1.0 mg/dL (0.2-1.0)
[2017-12-23 09:47] LABS: PARTIAL THROMBOPLASTIN TIME 28.8 Seconds (25.6-37.1); PROTHROMBIN TIME 10.7 Seconds (9.8-13.1)
[2017-12-23] MEDS ORDERED: Lactated Ringer's 1,000 ML IV ONE (09:48)
[2017-12-23] MEDS ORDERED: Lidocaine 2% Inj (20ml) ONE (10:43)
[2017-12-23] MEDS ORDERED: MethylPREDNISolone Depo 40 mg/ml Inj ONE (10:43)
[2017-12-23] MEDS ORDERED: Absorbable Gelatin Sponge Size 100 ONE (10:43)
[2017-12-23] MEDS ORDERED: Bupivacaine 0.5% Inj(30mL) ONE (10:43)
[2017-12-23] MEDS ORDERED: Bacitracin Ointment 30 GM TUBE ONE (10:43)
[2017-12-23] MEDS ORDERED: Thrombin Topical 5,000 Int Units Spray Kit ONE (10:59)
[2017-12-23] MEDS ORDERED: Midazolam 2 MG/2 ML VIAL ONE (11:53)
[2017-12-23] MEDS ORDERED: Lidocaine 4% (Laryng-O-Jet) Kit MM ONE (11:53)
[2017-12-23] MEDS ORDERED: Succinylcholine 200 mg/10 ml Inj IV ONE (11:53)
[2017-12-23] MEDS ORDERED: Rocuronium 10 mg/ml (5 ml) ONE ×2 (11:55→14:47)
[2017-12-23] MEDS ORDERED: Bupivacaine HCl 0.25% PF (30 ml) Inj ONE (12:00)
[2017-12-23] MEDS ORDERED: EPINEPHrine 1 mg/ml (1:1000) Inj ONE (12:00)
--- NOTE | 2017-12-23 12:25 | RAD ---
HISTORY: Preoperative assessment COMPARISON: Comparison chest 07/09/2018 TECHNIQUE: Chest PA and lateral FINDINGS: LUNGS: No active pulmonary disease. PLEURA: No significant pleural effusion identified. No pneumothorax apparent. CARDIOVASCULAR: Normal. OSSEOUS STRUCTURES: Minor multilevel degenerative spondylosis of the thoracic spine. VISUALIZED UPPER ABDOMEN: Normal. OTHER FINDINGS: None. IMPRESSION: No active disease.
[2017-12-23] MEDS ORDERED: Sevoflurane - Inhalation Anesthetic Liq (250 ml) ONE (13:52)
[2017-12-23 14:33] LABS: FLUID TYPE SYNOVIAL FLUID
[2017-12-23] MEDS ORDERED: Sodium Chloride 0.9% 3,000 ML IV ONE (14:59)
[2017-12-23] MEDS ORDERED: Neostigmine 1:1000 (1 mg/ml) Inj ONE (15:30)
[2017-12-23] MEDS ORDERED: Bacitracin OINT 15GM TOP ONE (15:31)
[2017-12-23 16:08] LABS: SF GROSS APPEARANCE CLOUDY (CLEAR)
[2017-12-23 16:09] LABS: SYNOVIAL FLUID MONO/MACROPHAGE 4 % (0-0)
--- NOTE | 2017-12-23 16:19 | PCM.SURG1 ---
Surgeon's Initial Post Op Note - Surgeon's Notes Surgeon: Oriana Director Banking: 1st assist Ambrosio Prince, 2nd assist [place] Type of Anesthesia: General Endo, Spinal Anesthesia Administered By: Dr Quigley Pre-Operative Diagnosis: Rupture patella ligament- s/p L TKR Operative Findings: rupture patella ligamnet. tear medial/lateral retinaculum. synovitis Post-Operative Diagnosis: as above Operation Performed: primary repair patella ligament, wiht reconstruction patella ligam,ent using bone block Achilles tendon allograft. arthrotomy/ synovctomy(partialk). repair medical and lateral rwetinaculum/capsule L knwee. excision skin/subcutaneous tissue/muscle. applx knee immobilizer Specimen/Specimens Removed: synovium/tendon/skin subcutaneoius tissue/muscle Estimated Blood Loss: EBL {In ML}: 30 Blood Products Given: N/A Drains Used: No Drains Post-Op Condition: Good Date of Surgery/Procedure: 12/23/17 Time of Surgery/Procedure: 14:15 (time in room/anaesthesia indcution time 1300)
[2017-12-23] MEDS ORDERED: Sodium Chloride 0.9% 1,000 ML IV SCH (16:45)
[2017-12-23] MEDS ORDERED: HYDROmorphone 0.5 mg/0.5 ml ISec IVP PRN (16:55)
[2017-12-23] MEDS ORDERED: Lactated Ringer's 1,000 ML IV SCH (17:00)
--- NOTE | 2017-12-23 17:08 | PCM.ANESB3 ---
Femoral Nerve Block - Femoral Nerve Block Date of Procedure: 12/23/17 Anesthesiologist: Dr. Quigley Pre-Procedure Diagnosis: S/P left patellar ligament repair with allograft Post-Procedure Diagnosis: S/P left patellar ligament repair with allograft Procedure Performed: Femoral Nerve Block Left - Procedure Femoral Nerve Block: The procedure was explained to the patient that it is for the post-operative pain management. Consent was obtained after a thorough discussion with the patient regarding the benefits and possible complications of local anesthetic block of the femoral nerve at the inguinal crease area. The patient was brought to the operating room and standard monitors were applied. Time-out was held with the circulating nurse to confirm the correct surgery and the appropriate block. After the surgery while still under general anesthesia, patient in supine position with fully extended lower extremities and the left groin exposed. The femoral artery was then carefully palpated. The ultrasound transducer was then applied to this area in the transverse plane and the femoral nerve was visualized lateral to the femoral artery and underneath the fascia iliaca. After thorough identification, the inguinal crease area was prepped with chloraprep solution. At this point, a #20 gauge Stimuplex 4-inch needle was inserted immediately lateral to the femoral artery pulse at the inguinal crease and advanced perpendicularly. The needle was inserted to the ultrasound transducer in-plane towards the femoral nerve under the fascia iliaca in a [id number] direction. Needle advancement was performed carefully under direct ultrasound visualization. Nerve stimulator was used and twitch of the quadriceps muscle was obtained at current of 0.3MA. After negative aspiration, 5cc of 0.25% bupivacaine with 1:200,000 epinephrine was injected and this was followed with 35cc of 0.25% bupivacaine with 1:200,000 epinephrine. Under ultrasound guidance the local anesthetics were observed spreading below fascia iliaca and around the femoral nerve. The needle was removed intact and sterile dressing was applied. The patient had stable vital signs, was conscious and in no apparent distress. The patient tolerated the femoral nerve block well with stable vital signs and was awaken from anesthesia. Then transported to PACU.
--- NOTE | 2017-12-23 19:17 | CARD ---
APPROVED REPORT EKG Measurement Heart [id number] HI [id number] <Conclusion> Normal sinus rhythm Voltage criteria for left ventricular hypertrophy Abnormal ECG
[2017-12-24] MEDS: Oxycodone/Acetaminophen 5/325 mg Tab PO PRN ×3 (00:44→14:50)
[2017-12-24] MEDS: ceFAZolin 2 GM in Sodium Chloride 0.9% 100 ML IVPB SCH ×2 (00:50→08:50)
[2017-12-24 08:23] VITALS: RESP 20; TEMP 98.1
--- NOTE | 2017-12-24 08:37 | CP.PCM.PN ---
Subjective - Date & Time of Evaluation Date of Evaluation: 12/24/17 Time of Evaluation: 07:45 - Subjective Subjective: Patient seen and examined at bedside comfortable. Pain well controlled. Tolerating diet. No acute events overnight. Objective - Vital Signs/Intake and Output Vital Signs (last 24 hours): Temp Pulse Resp BP Pulse Ox 98.1 F 103 H 20 135/68 99 12/24/17 08:22 12/24/17 08:22 12/24/17 08:22 12/24/17 08:22 12/24/17 08:22 - Medications Medications: Current Medications Acetaminophen (Tylenol 325mg Tab) 650 mg PO Q4 PRN PRN Reason: Fever 101 degrees fahrenheit Docusate Sodium (Colace) 100 mg PO BID ASIYA Cefazolin Sodium 2 gm/ Sodium (Chloride) 100 mls @ 100 mls/hr IVPB Q8 ASIYA PRN Reason: Protocol Stop: 12/24/17 09:59 Last Admin: 12/24/17 00:50 Dose: 100 mls/hr Sodium Chloride (Sodium Chloride 0.9%) 1,000 mls @ 80 mls/hr IV .[id number] ON LICENSE OF [facility] Stop: 12/24/17 16:37 Last Admin: 12/24/17 05:15 Dose: Not Given Lactated Ringer's (Lactated Ringer's) 1,000 mls @ 100 mls/hr IV .Q10H ON LICENSE OF [facility] Losartan Potassium (Cozaar) 100 mg PO DAILY ON LICENSE OF [facility] Metformin HCl (Glucophage) 500 mg PO DAILY ON LICENSE OF [facility] Ondansetron HCl (Zofran Inj) 4 mg IVP ONCE PRN PRN Reason: Nausea/Vomiting Oxycodone/Acetaminophen (Percocet 5/325 Mg Tab) 1 tab PO Q4 PRN PRN Reason: Pain, moderate (4-7) Stop: 12/26/17 18:26 Last Admin: 12/24/17 00:44 Dose: 1 tab - Labs Labs: PT 10.7 Seconds (9.8-13.1) 12/23/17 09:32 INR 1.0 (0.9-1.2) 12/23/17 09:32 APTT 28.8 Seconds (25.6-37.1) 12/23/17 09:32 - Extremities Exam Additional comments: L Knee: Knee immobilizer intact, Dressings CDI, mild tenderness sensation intact SP/DP/TN motor intact EHL/FHL/TA/G pedal pulses intact comp soft/NT Assessment and Plan (1) Patellar tendon rupture Assessment & Plan: POD#1 s/p L knee patella tendon reconstruction -STRICT knee immobilizer, DO NOT REMOVE -PT/OT TTWB -Clear to discharge once evaluated by PT -f/u in the office in 7-10 days -above d/w Dr. Gastelum in agreement Status: Acute
--- NOTE | 2017-12-24 10:09 | OP ---
PROCEDURE DATE: 12/23/2017 PREOPERATIVE DIAGNOSIS: Ruptured patellar ligament, status post successful left total knee replacement. POSTOPERATIVE DIAGNOSES: 1. Ruptured patellar ligament, status post left total knee replacement. 2. Ruptured capsule, medial lateral retinaculum and the medial and lateral capsule. 3. Arthrotomy of the knee and synovectomy. 4. Arthrotomy culture and biopsy. OPERATIVE FINDINGS Rupture patellar ligament with an intact total knee replacement arthroplasty with no evidence of instability. The patient also completely tore the medial and lateral retinaculum. There is marked synovitis with no evidence of sepsis. OPERATIONS PERFORMED: 1. Primary repair/reconstruction, patellar ligament rupture, status post successful left total knee replacement. 2. Primary repair of the capsule, lateral ligaments and retinaculum using interrupted fiber wire suture. 3. Internal fixation of the allograft. 4. Arthrotomy and synovectomy, culture and biopsy of the knee joint. 5. Autograft grafting to the bed of the Achilles tendon allograft. 6. Application of Shoaib Lundy compression dressing and knee immobilizer. SURGEON: Silvestre Gastelum MD ULTRASONIC SOLDERER: Barbara Prince, certified registered nursing marketing operations assistant. SECOND WELDER APPRENTICE GAS: [place] PA-C. SPECIMENS REMOVED: Synovium, tendon, skin, and subcutaneous tissue. BLOOD LOSS: 30 mL. BLOOD PRODUCTS GIVEN: None. DRAINS: No drains. POSTOPERATIVE CONDITION: Stable. INCISION TIME: 1415. TIME IN THE ROOM: Anesthesia induction time 1300. OPERATIVE PROCEDURE: Anya Jose is a 62-year-old woman who had undergone successful left total knee replacement and arthroplasty. The patient was doing quite well until she fell on ice in August, sustaining injury to the knee. The patient presented late to my office, patellar ligament rupture was diagnosed. The patient did not follow up in a timely fashion. She finally followed up and when emergency surgery was recommended to her, the patient said she wished to wait until December because of some commitment with her . Pros, cons, risks, and benefits of the patellar ligament repair/reconstruction were discussed. The possibility of mechanical failure, infection, thromboembolic disease, stiffness, secondary or tertiary surgery was discussed. The patient can no longer withstand the discomfort and wishes the surgery to be accomplished. OPERATIVE PROCEDURE: After having obtained informed consent in the above fashion, after the satisfactory induction of spinal and regional anesthesia by Dr. Quigley, after having identified side, site, and procedure and critical pause/time-out, the patient identified as Anya Jose in supine position with all bony prominences well padded, the left lower extremity was prepped and free draped in usual fashion for extremity surgery. The tourniquet had been applied but was not yet inflated. After exsanguinating the limb using 6-inch Esmarch bandage, the tourniquet which had been applied is inflated to 350 mmHg. The initial incision was extended two to three fingerbreadths distally and two to three fingerbreadths proximally. An ellipse of skin, subcutaneous tissue and some muscle was excised and this was removed using the grasped with an Allis clamp and removed with electrocautery. Dissection was carried down to the level of the prepatellar bursa and the patellar ligament. Great care was taken not to violate the remnants of the patellar ligament. Dissection was carried medially and laterally at the area of the prepatellar bursa because that is the area in which the blood supply comes into the knee. Flaps were elevated. The extensor expansion was identified. This having been accomplished, the wound was thoroughly irrigated, the patellar ligament is identified and the extensor expansion was identified. This having been accomplished, the wound was thoroughly irrigated. There was found to be complete tear of the medial lateral retinaculum as well as the patellar ligament. The decision for primary reconstruction and allograft reconstruction was made on the base of the tenuous nature of the tissue. This having been accomplished, Achilles tendon allograft is identified and employed and this having been accomplished using an oscillating saw just the fingerbreadth distal to the patellar ligament insertion. A rectangle bone block is excised from the medial aspect of the tibia 1.5 x 14 mm approximately. This having been accomplished, the bone block is elevated and the Achilles tendon allograft had been torn, the bone block is placed in that defect that was created and fixation was accomplished with three interfragmentary lag screw. Drilling was accomplished, a 2.5-drill bit followed by sounding, followed by introduction of the screws with washers. This having been accomplished, the extensor expansion is brought out to engulf and encompassed the extensor expansion in the patella. Attention was now turned to repair of the medial and lateral capsule and retinaculum. This was accomplished with #2 fiber wire with the knee in approximately 10 degrees short of extension. Primary repair having been accomplished at this point in time, repair of the Achilles tendon to the surrounding extensor expansion was accomplished with interrupted and running #2 fiber wire. This having been accomplished, a great deal of time was taken to go first laterally and then medially to incorporate the repair into the repair of the capsule and retinaculum. It should be noted at this point time that from the bone block that was removed, autograft bone graft was accomplished and autograft bone grafting was accomplished to the bed of the insertion of the allograft of the Achilles tendon allograft. Autograft, allograft bone grafting having been accomplished, repair of the extensor tendon having been accomplished with multiple #2 fiber wire sutures, the repair was found be excellent. There is no evidence of instability on flexion to the knee. It should be noted that fluid is sent for culture. Gram stain was negative for organisms and the number of white cells per high-power field, it was two white cells per high-power field. This having been accomplished, the wound was thoroughly irrigated and repaired with interrupted fiber wire. Arthrotomy and synovectomy had been accomplished, the knee prior to repair with the allograft. Postoperative x-rays show acceptable position of the construct. Closures in layers with interrupted Vicryl and bruce. The tourniquet had been deflated. Hemostasis was controlled. Shoaib Lundy compression dressing, knee immobilizers applied. Silvestre Gastelum MD
--- NOTE | 2017-12-24 10:38 | CP.PCM.PN ---
Subjective - Date & Time of Evaluation Date of Evaluation: 12/24/17 Time of Evaluation: 10:00 - Subjective Subjective: NO CHEST PAIN OR SOB Objective - Vital Signs/Intake and Output Vital Signs (last 24 hours): Temp Pulse Resp BP Pulse Ox 98.1 F 103 H 20 135/68 99 12/24/17 08:22 12/24/17 08:22 12/24/17 08:22 12/24/17 08:22 12/24/17 08:22 - Medications Medications: Current Medications Acetaminophen (Tylenol 325mg Tab) 650 mg PO Q4 PRN PRN Reason: Fever 101 degrees fahrenheit Docusate Sodium (Colace) 100 mg PO BID [facility] Last Admin: 12/24/17 08:50 Dose: 100 mg Sodium Chloride (Sodium Chloride 0.9%) 1,000 mls @ 80 mls/hr IV .[id number] [facility] Stop: 12/24/17 16:37 Last Admin: 12/24/17 05:15 Dose: Not Given Lactated Ringer's (Lactated Ringer's) 1,000 mls @ 100 mls/hr IV .Q10H [facility] Losartan Potassium (Cozaar) 100 mg PO DAILY [facility] Metformin HCl (Glucophage) 500 mg PO DAILY [facility] Last Admin: 12/24/17 08:51 Dose: 500 mg Ondansetron HCl (Zofran Inj) 4 mg IVP ONCE PRN PRN Reason: Nausea/Vomiting Oxycodone/Acetaminophen (Percocet 5/325 Mg Tab) 1 tab PO Q4 PRN PRN Reason: Pain, moderate (4-7) Stop: 12/26/17 18:26 Last Admin: 12/24/17 08:56 Dose: 1 tab - Labs Labs: PT 10.7 Seconds (9.8-13.1) 12/23/17 09:32 INR 1.0 (0.9-1.2) 12/23/17 09:32 APTT 28.8 Seconds (25.6-37.1) 12/23/17 09:32 - Respiratory Exam Respiratory Exam: Clear to Ausculation Bilateral - Cardiovascular Exam Cardiovascular Exam: REGULAR RHYTHM, +S1, +S2 - Additional Findings Additional findings: OPERATIVE NOTE REVIEWED WITH REPAIR OF LEFT PATELLA LIGAMENT HYPERTENSION HYPERLIPIDEMIA Assessment and Plan - Assessment and Plan (Free Text) Assessment: S/P LEFT TKR WITH SUBSEQUENT FALL AND SURGICAL REPAIR OF LEFT PATELLA LIGAMENT HYPERTENSION HYPERLIPIDEMIA TYPE 2 DM Plan: CONTINUE LOSARTAN AND METFORMEN FOR PT EVALUATION AND DISCHARGE
--- NOTE | 2017-12-24 11:04 | CP.PCM.DIS ---
Provider - Provider Date of Admission: 12/23/17 16:36 Attending physician: Melina Gann MD Primary care physician: Silvestre Gastelum III, MD Consults: Cardio : Dr De La Cruz Ortho: Dr Gastelum Time Spent in preparation of Discharge (in minutes): 25 Diagnosis - Discharge Diagnosis (1) Left knee pain Status: Acute (2) S/P total knee replacement Status: Chronic (3) Hypercholesterolemia Status: Chronic (4) Hypertension Status: Chronic (5) Sleep apnea Status: Chronic (6) Type 2 diabetes mellitus Status: Chronic (7) Primary osteoarthritis of knee Status: Chronic (8) DVT prophylaxis Status: Acute (9) Patellar tendon rupture Status: Acute Hospital Course - Lab Results Lab Results: Micro Results 12/23/17 14:22 Body Fluid - Knee-Left Gram Stain - Final Most Recent Lab Values PT 10.7 Seconds (9.8-13.1) 12/23/17 09:32 INR 1.0 (0.9-1.2) 12/23/17 09:32 APTT 28.8 Seconds (25.6-37.1) 12/23/17 09:32 POC Glucose (mg/dL) 91 mg/dL (65-110) 12/24/17 05:54 Urine Color Yellow (YELLOW) 12/23/17 08:24 Urine Clarity Clear (Clear) 12/23/17 08:24 Urine pH 6.0 (5.0-8.0) 12/23/17 08:24 Ur Specific Benton 1.019 (1.003-1.030) 12/23/17 08:24 Urine Protein Negative mg/dL (NEGATIVE) 12/23/17 08:24 Urine Glucose (UA) Neg mg/dL (Normal) 12/23/17 08:24 Urine Ketones Negative mg/dL (NEGATIVE) 12/23/17 08:24 Urine Blood Negative (NEGATIVE) 12/23/17 08:24 Urine Nitrate Negative (NEGATIVE) 12/23/17 08:24 Urine Bilirubin Negative (NEGATIVE) 12/23/17 08:24 Urine Urobilinogen 0.2-1.0 mg/dL (0.2-1.0) 12/23/17 08:24 Ur Leukocyte Esterase Neg Mayra/uL (Negative) 12/23/17 08:24 Urine RBC (Auto) 1 /hpf (0-3) 12/23/17 08:24 Urine Microscopic WBC 1 /hpf (0-5) 12/23/17 08:24 Fluid Type Synovial fluid 12/23/17 14:22 Synovial WBC 27.0 /mm3 (0.0-150.0) 12/23/17 14:22 Synovial RBC 1960.0 /mm3 (0.0-0.0) H 12/23/17 14:22 Synovial Neutrophils 7.0 % (0-0) H 12/23/17 14:22 Synovial Lymphocytes 15.0 % (0-0) H 12/23/17 14:22 Synov Monos/Macrophage 4 % (0-0) H 12/23/17 14:22 Synovial Fluid Comment Y bloody 12/23/17 14:22 Blood Type A POSITIVE 12/23/17 09:15 Antibody Screen Negative 12/23/17 09:15 BBK History Checked Patient has bt 12/23/17 09:15 - Hospital Course Hospital Course: 62 y/o female patient with hx of HTN, DM, Sleep Apnea, Osteoarthritis with previous Right and Left TKR, came in because of Left Knee Pain. The Patient had a Right TKR in 2015 and a Left TKR 06/2017. She was doing fine after the last surgery and was ambulating without any problem until 4 months ago ( August 2017) when she slipped and fell on the ice and twisted her left knee. She felt something popped and since then she started having left knee pain and was unable to put weight on her left knee on ambulation. Imagings done as outpt revealed Patellar ligament rupture so was advised surgery (1) Left knee pain due to Patellar Ligament Rupture s/p Repair Status: Acute Ortho consult: Dr Gastelum- Repair of Patellar Ligament Rupture Pt did well post op Pain mgt PT/OT- rec Outpt PT Keep knee Immobilizer at all times Tip toe weight bearing (2) S/P total knee replacement , bilateral for Primary OA Status: Chronic (3) Hypercholesterolemia Status: Chronic cont statin (4) Hypertension controlled Status: Chronic cont Losartan/HCTZ (5) Sleep apnea Status: Chronic Pt on CPAP q hs (6) Type 2 diabetes mellitus Status: Chronic cont Metformin DVT prophylaxis Aspirin bid Discharge Exam - Head Exam Head Exam: ATRAUMATIC, NORMAL INSPECTION, NORMOCEPHALIC - Eye Exam Eye Exam: EOMI, Normal appearance Pupil Exam: NORMAL ACCOMODATION - ENT Exam ENT Exam: Mucous Membranes Moist, Normal External Ear Exam - Neck Exam Neck exam: Full Rom - Respiratory Exam Respiratory Exam: NORMAL BREATHING PATTERN. absent: Respiratory Distress - Cardiovascular Exam Cardiovascular Exam: REGULAR RHYTHM, +S1, +S2 - GI/Abdominal Exam GI & Abdominal Exam: Normal Bowel Sounds, Soft. absent: Tenderness - Extremities Exam Extremities exam: normal capillary refill, pedal pulses present Additional comments: no calf tenderness left knee with immobilizer - Back Exam Back exam: FULL ROM. absent: CVA tenderness (L), CVA tenderness (R) - Neurological Exam Neurological exam: Alert, CN II-XII Intact, Oriented x3, Reflexes Normal - Psychiatric Exam Psychiatric exam: Normal Affect, Normal Mood - Skin Skin Exam: Dry, Normal Color, Warm Discharge Plan - Discharge Medications Prescriptions: Docusate [Colace] 100 mg PO BID #60 cap oxyCODONE/Acetaminophen [Percocet 5/325 mg Tab] 1 tab PO Q4 PRN #30 tab PRN Reason: Pain, Moderate (4-7) - Follow Up Plan Condition: GOOD Disposition: HOME/ ROUTINE Instructions: Knee Immobilizer (DC), Patellofemoral Pain (DC) Additional Instructions: follow up with Dr. Gastelum in 1 wk Keep Immobilizer on at all times Tip Toe Weight Bearing only Outpatient Physical therapy Referrals: Silvestre Gastelum III, MD [Primary Care Provider] -
--- NOTE | 2017-12-24 11:57 | RAD ---
PROCEDURE: Left knee 12/24/2017 AP and cross-table lateral portable views of the left knee performed COMPARISON: Comparison made with prior study 07/09/2017 FINDINGS: BONES: Re- demonstrated is total knee replacement. There has been interval apparent left patella tendon reconstruction with placement of 3 fully threaded cortical screws traversing the anterior margin of the proximal tibia at the level of the tibial tubercle. . There are postoperative changes within the subcutaneous tissues including subcutaneous air and air-fluid level. High-riding patella. . There is a tiny elliptical shaped bony density within the anterior soft tissues adjacent to the tibial plateau JOINTS: As above IMPRESSION: Status post patellar tendon repair with high-riding patella and expected postoperative soft tissue changes.
[2017-12-24 12:20] LABS: HEMOGLOBIN 10.7 g/dL (12.0-16.0); MEAN CELL VOLUME 81.3 fl (81.0-99.0); RBC 4.11 Mil/uL (3.80-5.20); RED CELL DISTRIBUTION WIDTH 17.1 % (11.5-14.5); WHITE BLOOD COUNT 7.3 K/uL (4.8-10.8)
[2017-12-24 12:31] LABS: BLOOD UREA NITROGEN 14 mg/dl (7-17); CALCIUM 8.8 mg/dL (8.4-10.2); GFR AFRICAN-AMERICAN > 60; GFR NON-AFRICAN AMERICAN > 60
[2017-12-24 13:56] VITALS: O2SAT 97
[2017-12-24 16:11] VITALS: BP 129/85; PULSE 96
== END 2017-12-24 15:45 | disposition home or self-care (01) ==
LOC: H.OPSURG 06:50 → UNDOADMOB 16:36 → H.MEDSURG1 16:36 → UNDODISOB 12-24 15:45
PROVIDERS: ADMIT Internal Medicine; ATTEND Internal Medicine
DX: S76.112A Strain of left quadriceps muscle, fascia and tendon, initial encounter (principal); M65.862 Other synovitis and tenosynovitis, left lower leg; M17.12 Unilateral primary osteoarthritis, left knee; I10 Essential (primary) hypertension; E11.9 Type 2 diabetes mellitus without complications; W00.0XXA Fall on same level due to ice and snow, initial encounter; E78.5 Hyperlipidemia, unspecified; E78.00 Pure hypercholesterolemia, unspecified; K21.9 Gastro-esophageal reflux disease without esophagitis; G47.30 Sleep apnea, unspecified; Z96.653 Presence of artificial knee joint, bilateral; Z79.84 Long term (current) use of oral hypoglycemic drugs; Y92.480 Sidewalk as the place of occurrence of the external cause
CPT/HCPCS: 27405; 27428; 36415; 64447; 71046; 73560; 80048; 81003; 82306; 82948; 85027; 85610; 85730; 86850; 86900; 87070; 87075; 88304; 89051; 93005; 97162; 97166; C1762; G0378; G8978; G8979; G8987; G8988; J0171; J0330; J0690; J1170; J1885; J2250; J2710; J2765; J3010; J7030; J7040; J7120; L1830